=== PATIENT | female | born 1955 | race Caucasian/White ===

== ENCOUNTER 2024-07-20 17:48 | Inpatient (IN) | payer MEDICARE, BC ==
[~2024-07-20] VITALS: Ht 162.6 cm; Wt 116.4 kg
[2024-07-20] MEDS ORDERED: MAALOX PLUS or MAALOX 30 ML PO ONE (18:45)
[2024-07-20] MEDS ORDERED: LIDOCAINE VISCOUS 2% 15ML UD PO ONE (18:45)
--- NOTE | 2024-07-20 19:05 | ED.PDOC ---
History of Present Illness HPI Comments 69 y/o obese F, with a history of DM, HTN, and hysterectomy, presents with c/o epigastric and lower abdominal pain, nausea, poor appetite, and chills for the past few days. Patient is a poor historian. She describes pain as constant and pressure-like in quality. Further endorses on having additional constipation alongside other symptoms during early onset, that has since resolved prior to arrival following laxative Docusate, MiraLax, and magnesium citrate use. Patient also reports on GasX medication use after laxative course to no relief or improvement of current symptoms. She is able to eat small amounts of food still. She denies any recent changes to her diet or current medications regimen alongside any travel, spoiled food intake, or substance use. Patient denies any on having any vomiting, constipation, diarrhea, urinary symptoms, fever, chills, or further associated symptoms or modifiers. Chief Complaint: Abdominal Pain Time Seen by MD: 18:20 Primary Care Provider: MICHELE Reviewed Notes: Nurses Notes, Medications, Allergies Allergies: Coded Allergies: NO KNOWN ALLERGIES (Unverified , 07/20/24) Information Source: Patient Mode of Arrival: Ambulatory Severity: Moderate Timing: Days Duration: Since onset Prehospital treatment: None Review of Systems: REVIEW OF SYSTEMS: No fever; chills HEENT: No neck pain, no blurred vision Cardiac:. No palpitations. Lungs: No shortness of breath, GI: epigastric and lower abdominal pain, nausea, poor appetite no vomiting Musculoskeletal: No joint pain , no back pain Skin: No rash, no wound Neuro: No headache, no dizziness, no syncope Vital Signs Vital Signs Date Time Temp Pulse Resp B/P (MAP) Pulse Ox O2 Delivery O2 Flow Rate FiO2 07/20/24 19:04 94 07/20/24 18:10 97.5 20 132/77 (95) 96 97.5 Physical Exam General: Awake, alert and oriented. No acute distress. Well-appearing, pleasant, smiling during exam. Skin: Skin in warm, dry and intact without rashes or lesions. HEENT: The head is normocephalic and atraumatic. Conjunctivae are clear without exudates or hemorrhage. Sclera is non-icteric. Neck: Normal range of motion. No JVD. Cardiac: Regular rate Respiratory: No signs of respiratory distress. No Stridor. Gastrointestinal: RUQ-epigastric and suprapubic tenderness, normal bowel sounds. No CVA tenderness. Extremities: Upper and lower extremities are atraumatic in appearance without deformity. Neurological: The patient is awake, alert and oriented to person, place, and time with normal speech. Speech is clear. There is no facial asymmetry. Normal gait Psychiatric: Appropriate mood and affect. Good judgement and insight. Past Medical History PAST MEDICAL HISTORY: DM, HTN Surgical History: Hysterectomy Surgical History (Other): Cataract and foot surgery [employer] PA[employer] SUPER[employer]OR History: Denies all [employer]PER[employer]OR Hx Family History Family History: Unknown Social History Smoker: Non-Smoker Alcohol: Denies ETOH Use Drugs: Denies Drug Use Lives In: Home Was a procedure done? Was a procedure done?: No EKG EKG : Pulse Rate (adult): 94 [place]: Normal Cardiac Rhythm: NSR Block: None Hypertrophy: None ST: Normal Comments QTC 4, 63 no STEMI Differential Dx Considerations may include: Differential diagnoses considered include: Abdominal aortic aneurysm, IA, esophageal rupture, intestinal obstruction, mesenteric ischemia, perforated viscus or solid organ rupture, CHF with hepatomegaly, pneumonia, abscess, appendicitis, biliary disease, diverticulitis, gastritis, gastroenteritis, hepatitis, hernia, inflammatory bowel disease, pancreatitis, peptic ulcer disease, urinary tract infection, ureteral colic, constipation, GERD, irritable syndrome, abdominal wall pain, nonspecific abdominal pain, herpes zoster. PID X-Ray, Labs, Meds, VS Vital Signs Date Time Temp Pulse Resp B/P (MAP) Pulse Ox O2 Delivery O2 Flow Rate FiO2 07/20/24 19:04 94 07/20/24 18:26 94 07/20/24 18:10 97.5 109 20 132/77 (95) 96 97.5 Lab Test 07/20/24 18:53 07/20/24 18:20 07/20/24 18:19 Range/Units White Blood Count 18.7 H 4.4-10.8 10^3/uL Red Blood Count 4.95 4.0-5.20 10^6/uL Hemoglobin 14.2 12.2-16.2 g/dL Hematocrit 42.7 36.0-46.0 % Mean Corpuscular Volume 86.3 80.0-100.0 fL Mean Corpuscular Hemoglobin 28.7 28.0-32.0 pg Mean Corpuscular Hemoglobin Concent 33.2 32.0-36.0 g/dL Red Cell Distribution Width 14.0 11.8-14.3 % Platelet Count 370 140-450 10^3/uL Mean Platelet Volume 8.8 6.9-10.8 fL Neutrophils (%) (Auto) 80.4 H 37.0-80.0 % Lymphocytes (%) (Auto) 11.0 10.0-50.0 % Monocytes (%) (Auto) 8.4 0.0-12.0 % Eosinophils (%) (Auto) 0.1 0.0-7.0 % Basophils (%) (Auto) 0.1 0.0-2.0 % Neutrophils # (Auto) 15.1 H 1.6-8.6 10 ^3/uL Lymphocytes # (Auto) 2.1 0.4-5.4 10 ^3/uL Monocytes # (Auto) 1.6 H 0-1.3 10 ^3/uL Eosinophils # (Auto) 0 0-0.8 10 ^3/uL Basophils # (Auto) 0 0-0.2 10 ^3/uL Nucleated Red Blood Cells 0.1 % Sodium Level 133 L 136-145 mmol/L Potassium Level 4.3 3.5-5.1 mmol/L Chloride Level 99 98-107 mmol/L Carbon Dioxide Level 24 20-31 mmol/L Anion Gap 10 5-15 Blood Urea Nitrogen 14 9-23 mg/dL Creatinine 1.22 H 0.550-1.02 mg/dL Glomerular Filtration Rate Calc 48 >90 mL/min BUN/Creatinine Ratio 11.5 10.0-20.0 Serum Glucose 194 H 74-106 mg/dL Calcium Level 9.6 8.7-10.4 mg/dL Total Bilirubin 0.7 0.2-1.0 mg/dL Aspartate Amino Transferase (AST) 11 L 13-40 U/L Alanine Aminotransferase (ALT) 11 7-40 U/L Alkaline Phosphatase 91 46-116 U/L Troponin I High Sensitivity 5 </=34 ng/L Total Protein 8.0 5.7-8.2 g/dL Albumin 4.8 3.2-4.8 g/dL Lipase 39 12-53 U/L POC Glucose 176 H 70-106 mg/dl Urine Color Light-orange Yellow Urine Clarity Ex.turbid Clear Urine pH 5.5 5.0-9.0 Urine Specific [place] 1.025 1.001-1.035 Urine Protein 1+ H Negative Urine Ketones Negative Negative Urine Blood 1+ H Negative /uL Urine Nitrite Negative Negative Urine Bilirubin Negative Negative Urine Urobilinogen Normal Negative mg/dL Urine Leukocyte Esterase 3+ Negative /uL Urine RBC 25 0 - 4 /hpf Urine Microscopic WBC 70 H 0-5 /HPF Urine Squamous Epithelial Cells Many <5 /hpf Urine Bacteria Few H None Seen /hpf Urine Mucus Few None Seen Urine Glucose Trace Normal mg/dL PROCEDURE(s): ABPL - CT AB PEL WO CON-NO ORAL OR IV REASON: generalized abd pain, RUQ tender ORDER NUMBER(s): [id number], ACCESSION NUMBER(s): [id number] Procedure: CT CT AB PEL WO CON-NO ORAL OR IV 07/20/2024 07:06 PM Indication: generalized abd pain, RUQ tender Comparison Study: None Technique: Axial images were obtained and reformatted in coronal and sagittal planes. All CT scans at this medical facility are performed using dose modu lation techniques as appropriate to a performed exam including the following: Automated exposure control was utilized; adjustment of the MA and/or KV according to patient size; and use of iterative reconstruction technique. CT Dose: CTDI volume is 22.88 mGy. Dose-length product is 1224.87 mGy*cm FINDINGS: Lower Chest: Unremarkable. Hepatobiliary: A 5.9 cm stone seen in gallbladder lumen moderate gallbladder wall thickening severe pericholecystic inflammation compatible with acute cholecystitis. No intrahepatic or extrahepatic ductal dilatation.. Spleen: Unremarkable. Pancreas: Unremarkable. Adrenal Glands: Unremarkable. tract: The kidneys are normal in size bilaterally without hydronephrosis or nephrolithiasis. The urinary bladder is unremarkable. GI tract: The stomach is grossly normal in appearance. No evidence of small bowel obstruction. The large bowel is unremarkable. The appendix is normal. Lymphatics: No mesenteric, retroperitoneal or periportal lymphadenopathy. Vasculature: Aorta is normal in caliber. Scattered calcified plaques are noted. Pelvic Organs: The uterus is surgically absent. No adnexal lesion is identified. Bones/soft tissues: Mild degenerative grade 1 anterolisthesis at L4-L5. Multilevel degenerative disc disease and posterior facet arthropathy of the lumbar spine noted. Other: None. IMPRESSION: 1. Cholelithiasis with evidence of acute cholecystitis. A large, 5.9 cm gallstone seen in gallbladder lumen. No intrahepatic or extrahepatic ductal dilatation. ATED BY: INDY GUTIERREZ MD DICTATED DATE/TIME: 07/20/241958 SIGNED BY: INDY GUTIERREZ MD SIGNED DATE/TIME: 07/20/241958 CC: Time of 1ST Reevaluation: 18:50 Reevaluation 1ST: Unchanged Patient Education/Counseling: Need For Follow Up Family Education/Counseling: No Family Present Departure 1 Departure Time of Disposition: 20:34 Impression: Primary Impression: Urinary tract infection Additional Impressions: Cholelithiasis Abdominal pain Disposition: ADMITTED INPATIENT Condition: Stable Comments Antibiotics, IV fluids initiated in the emergency department. Patient admitted to hospitalist service for further treatment, evaluation and monitoring. Extensive evaluation was performed in attempt to identify or rule out: (See differential diagnosis section) The following tests were ordered, and results were reviewed by me and discussed with patient: (See diagnostic results section) The following test were independently interpreted by me: EKG I reviewed and agreed with the following test results read by other providers: N/A I reviewed the following notes from the pt's past medical encounters: N/A Additional information was gathered from interviewing the following independent historians: N/A Discussion of management or test interpretation with external physician/other qualified health tree care foreman: N/A Decision regarding hospitalization or escalation of hospital level of care: Risk and benefits of admission for further treatment of patient's condition was considered. Due to patient's current clinical condition, high risk of decline and poor outcome if discharged and need for further inpatient management and monitoring, patient will be admitted to the hospital. Drug therapy requiring intensive monitoring for toxicity: N/A Parenteral controlled substances: IV morphine Decision regarding elective major surgery with identified patient or procedure risk factors: N/A Decision regarding emergency major surgery: N/A Decision not to resuscitate or to de-escalate care because of poor prognosis: N/A Diagnosis or treatment significantly limited by social determinants of health: N/A Critical Care Note Critical Care Time?: No Stability Stability form required: No Heart Score Heart Score: Heart Score Response (Comments) Value History N/A 0 EKG N/A 0 Age N/A 0 Risk Factors N/A 0 Troponin N/A 0 Total 0 I personally scribed for SAKRIS DÍAZ MD ([email or web address]) on 07/20/24 at 19:04. Electronically submitted by Brown Lacy ([email or web address]). SARKIS DÍAZ MD July 20, 2024 19:04
[2024-07-20 19:38] LABS: Basophils # (auto) 0 10 ^3/uL (0-0.2); Basophils % (auto) 0.1 % (0.0-2.0); Eosinophils # (auto) 0 10 ^3/uL (0-0.8); Eosinophils % (auto) 0.1 % (0.0-7.0); Hematocrit 42.7 % (36.0-46.0); Hemoglobin 14.2 g/dL (12.2-16.2); Lymphocytes # (auto) 2.1 10 ^3/uL (0.4-5.4); Mean Corpuscular Hemoglobin 28.7 pg (28.0-32.0); Mean Corpuscular Hgb Conc. 33.2 g/dL (32.0-36.0); Mean Corpuscular Volume 86.3 fL (80.0-100.0); Monocytes # (auto) 1.6 10 ^3/uL (0-1.3); Monocytes % (auto) 8.4 % (0.0-12.0); Neutrophils # (auto) 15.1 10 ^3/uL (1.6-8.6); Neutrophils % (auto) 80.4 % (37.0-80.0); Nucleated Red Blood Cells % 0.1 %; Platelet Count (auto) 370 10^3/uL (140-450); Red Blood Cells 4.95 10^6/uL (4.0-5.20); White Blood Cell 18.7 10^3/uL (4.4-10.8)
[2024-07-20 19:54] LABS: Alanine Aminotransferase 11 U/L (7-40); Alkaline Phosphatase 91 U/L (46-116); Anion Gap 10 (5-15); BUN/Creatinine Ratio 11.5 (10.0-20.0); Blood Urea Nitrogen 14 mg/dL (9-23); Calcium 9.6 mg/dL (8.7-10.4); Carbon Dioxide 24 mmol/L (20-31); Chloride 99 mmol/L (98-107); Lipase 39 U/L (12-53); Potassium 4.3 mmol/L (3.5-5.1)
[2024-07-20 19:55] LABS: Bilirubin, Total 0.7 mg/dL (0.2-1.0)
[2024-07-20 19:57] LABS: Albumin 4.8 g/dL (3.2-4.8); Aspartate Aminotransferase 11 U/L (13-40); Glucose 194 mg/dL (74-106); Sodium 133 mmol/L (136-145)
[2024-07-20 20:00] LABS: Urine Bacteria FEW /hpf (None Seen); Urine Blood 1+ /uL (Negative); Urine Clarity Ex.Turbid (Clear); Urine Color Light-Orange (Yellow); Urine Mucus FEW (None Seen); Urine Protein, UAD 1+ (Negative); Urine Specific Gravity 1.025 (1.001-1.035); Urine Squamous Epithelial Cell MANY /hpf (<5); Urine Urobilinogen Normal (Negative); Urine WBC 70 /HPF (0-5); Urine pH 5.5 (5.0-9.0)
--- NOTE | 2024-07-20 20:01 | DVH ---
Procedure: CT CT AB PEL WO CON-NO ORAL OR IV 07/20/2024 07:06 PM Indication: generalized abd pain, RUQ tender Comparison Study: None Technique: Axial images were obtained and reformatted in coronal and sagittal planes. All CT scans at this medical facility are performed using dose modulation techniques as appropriate to a performed e xam including the following: Automated exposure control was utilized; adjustment of the MA and/or KV according to patient size; and use of iterative reconstruction technique. CT Dose: CTDI volume is 22. 88 mGy. Dose-length product is 1224.87 mGy*cm FINDINGS: Lower Chest: Unremarkable. Hepatobiliary: A 5.9 cm stone seen in gallbladder lumen moderate gallbladder wall thickening severe p ericholecystic inflammation compatible with acute cholecystitis. No intrahepatic or extrahepatic duct al dilatation.. Spleen: Unremarkable. Pancreas: Unremarkable. Adrenal Glands: Unremarkable. tract: The kidneys are normal in size bilaterally without hydronephrosis or nephrolithiasis. The u rinary bladder is unremarkable. GI tract: The stomach is grossly normal in appearance. No evidence of small bowel obstruction. The la rge bowel is unremarkable. The appendix is normal. Lymphatics: No mesenteric, retroperitoneal or periportal lymphadenopathy. Vasculature: Aorta is normal in caliber. Scattered calcified plaques are noted. Pelvic Organs: The uterus is surgically absent. No adnexal lesion is identified. Bones/soft tissues: Mild degenerative grade 1 anterolisthesis at L4-L5. Multilevel degenerative disc disease and posterior facet arthropathy of the lumbar spine noted. Other: None. IMPRESSION: 1. Cholelithiasis with evidence of acute cholecystitis. A large, 5.9 cm gallstone seen in gallbladde r lumen. No intrahepatic or extrahepatic ductal dilatation.
[2024-07-20] MEDS ORDERED: SODIUM CHLORIDE 0.9% 1,000 ML IV ONE (20:45)
[2024-07-20] MEDS: MORPHINE SULFATE INJ 2 MG/ml SYRG IV ONE (20:45)
[2024-07-20] MEDS ORDERED: ONDANSETRON HCL 4 MG/2 ML VIAL IV PRN (22:30)
--- NOTE | 2024-07-20 22:32 | DVHHP2 ---
History of Present Illness Reason for Visit: Abdominal pain History of Present Illness 69-year-old female presents for evaluation of abdominal pain. Patient reports a four day history of epigastric/lower abdominal sharp pain that is intermittent in nature. Reports episodes of nausea especially after eating. States having chills as well. No other acute complaints reported. Past Medical History Hypertension diabetes mellitus Past Surgical History Foot surgery Family History Noncontributory Smoke: No ALCOHOL: none Drugs: None Lives: with Family Review of Systems Review of Systems Review of systems are currently negative otherwise addressed in HPI. Allergies: Coded Allergies: NO KNOWN ALLERGIES (Unverified , 07/20/24) Medications Current Medications Medications Dose Ordered Sig/[place] Route Start Time Stop Time Status Last Admin Dose Admin Ceftriaxone Sodium 50 ml @ 100 mls/hr DAILY@09 IV 07/21/24 09:00 UNV Metronidazole 100 ml @ 100 mls/hr Q8HR IV 07/21/24 06:00 UNV Sodium Chloride 1,000 ml @ 100 mls/hr Q10H IV 07/20/24 22:30 UNV Ondansetron HCl 4 mg Q4HP PRN IV 07/20/24 22:30 UNV Morphine Sulfate 2 mg Q4HPRN PRN IV 07/20/24 22:30 UNV Exam Vital Signs Vital Signs Date Time Temp Pulse Resp B/P (MAP) Pulse Ox O2 Delivery O2 Flow Rate FiO2 07/20/24 19:04 94 07/20/24 18:10 97.5 20 132/77 (95) 96 97.5 Exam Gen: 69-year-old female in mild distress Skin: Warm, dry, normal color and texture, no rash. HEENT: Normocephalic atraumatic, mucous membranes moist and pink. Neck: Cervical and supraclavicular nodes normal without enlargement, trachea is midline, thyroid gland is normal without masses. Pulmonary: Clear to auscultation and percussion bilaterally. Cardiac: Regular rate and rhythm. No murmur Abdomen: Soft, epigastric tenderness, nondistended, bowel sounds present all 4 quadrants, no guarding, no rigidity, no organomegaly. Extremities: No cyanosis, clubbing, no edema Neuro: Cranial nerves II through XII grossly intact, normal affect and speech, no focal motor deficits. Labs/Xrays ORDERING PHYSICIAN: SARKIS DÍAZ MD PROCEDURE(s): ABPL - CT AB PEL WO CON-NO ORAL OR IV REASON: generalized abd pain, RUQ tender ORDER NUMBER(s): [id number], ACCESSION NUMBER(s): [id number] Procedure: CT CT AB PEL WO CON-NO ORAL OR IV 07/20/2024 07:06 PM Indication: generalized abd pain, RUQ tender Comparison Study: None Technique: Axial images were obtained and reformatted in coronal and sagittal planes. All CT scans at this medical facility are performed using dose modulation techniques as appropriate to a performed exam including the following: Automated exposure control was utilized; adjustment of the MA and/or KV according to patient size; and use of iterative reconstruction technique. CT Dose: CTDI volume is 22.88 mGy. Dose-length product is 1224.87 mGy*cm FINDINGS: Lower Chest: Unremarkable. Hepatobiliary: A 5.9 cm stone seen in gallbladder lumen moderate gallbladder wall thickening severe pericholecystic inflammation compatible with acute cholecystitis. No intrahepatic or extrahepatic ductal dilatation.. Spleen: Unremarkable. Pancreas: Unremarkable. Adrenal Glands: Unremarkable. tract: The kidneys are normal in size bilaterally without hydronephrosis or nephrolithiasis. The urinary bladder is unremarkable. GI tract: The stomach is grossly normal in appearance. No evidence of small bowel obstruction. The large bowel is unremarkable. The appendix is normal. Lymphatics: No mesenteric, retroperitoneal or periportal lymphadenopathy. Vasculature: Aorta is normal in caliber. Scattered calcified plaques are noted. Pelvic Organs: The uterus is surgically absent. No adnexal lesion is identified. Bones/soft tissues: Mild degenerative grade 1 anterolisthesis at L4-L5. Multilevel degenerative disc disease and posterior facet arthropathy of the lumbar spine noted. Other: None. IMPRESSION: 1. Cholelithiasis with evidence of acute cholecystitis. A large, 5.9 cm gallstone seen in gallbladder lumen. No intrahepatic or extrahepatic ductal dilatation. ATED BY: INDY GUTIERREZ MD Labs Test 07/20/24 18:53 07/20/24 18:20 07/20/24 18:19 Range/Units White Blood Count 18.7 H 4.4-10.8 10^3/uL Red Blood Count 4.95 4.0-5.20 10^6/uL Hemoglobin 14.2 12.2-16.2 g/dL Hematocrit 42.7 36.0-46.0 % Mean Corpuscular Volume 86.3 80.0-100.0 fL Mean Corpuscular Hemoglobin 28.7 28.0-32.0 pg Mean Corpuscular Hemoglobin Concent 33.2 32.0-36.0 g/dL Red Cell Distribution Width 14.0 11.8-14.3 % Platelet Count 370 140-450 10^3/uL Mean Platelet Volume 8.8 6.9-10.8 fL Neutrophils (%) (Auto) 80.4 H 37.0-80.0 % Lymphocytes (%) (Auto) 11.0 10.0-50.0 % Monocytes (%) (Auto) 8.4 0.0-12.0 % Eosinophils (%) (Auto) 0.1 0.0-7.0 % Basophils (%) (Auto) 0.1 0.0-2.0 % Neutrophils # (Auto) 15.1 H 1.6-8.6 10 ^3/uL Lymphocytes # (Auto) 2.1 0.4-5.4 10 ^3/uL Monocytes # (Auto) 1.6 H 0-1.3 10 ^3/uL Eosinophils # (Auto) 0 0-0.8 10 ^3/uL Basophils # (Auto) 0 0-0.2 10 ^3/uL Nucleated Red Blood Cells 0.1 % Sodium Level 133 L 136-145 mmol/L Potassium Level 4.3 3.5-5.1 mmol/L Chloride Level 99 98-107 mmol/L Carbon Dioxide Level 24 20-31 mmol/L Anion Gap 10 5-15 Blood Urea Nitrogen 14 9-23 mg/dL Creatinine 1.22 H 0.550-1.02 mg/dL Glomerular Filtration Rate Calc 48 >90 mL/min BUN/Creatinine Ratio 11.5 10.0-20.0 Serum Glucose 194 H 74-106 mg/dL Calcium Level 9.6 8.7-10.4 mg/dL Total Bilirubin 0.7 0.2-1.0 mg/dL Aspartate Amino Transferase (AST) 11 L 13-40 U/L Alanine Aminotransferase (ALT) 11 7-40 U/L Alkaline Phosphatase 91 46-116 U/L Troponin I High Sensitivity 5 </=34 ng/L Total Protein 8.0 5.7-8.2 g/dL Albumin 4.8 3.2-4.8 g/dL Lipase 39 12-53 U/L POC Glucose 176 H 70-106 mg/dl Urine Color Light-orange Yellow Urine Clarity Ex.turbid Clear Urine pH 5.5 5.0-9.0 Urine Specific [place] 1.025 1.001-1.035 Urine Protein 1+ H Negative Urine Ketones Negative Negative Urine Blood 1+ H Negative /uL Urine Nitrite Negative Negative Urine Bilirubin Negative Negative Urine Urobilinogen Normal Negative mg/dL Urine Leukocyte Esterase 3+ Negative /uL Urine RBC 25 0 - 4 /hpf Urine Microscopic WBC 70 H 0-5 /HPF Urine Squamous Epithelial Cells Many <5 /hpf Urine Bacteria Few H None Seen /hpf Urine Mucus Few None Seen Urine Glucose Trace Normal mg/dL Assessment/Plan Assessment/Plan Assessment Acute cholecystitis Acute abdominal pain Leukocytosis UTI Plan Admit the patient to [facility] to the hospitalist NPO Surgical consult Maintenance IV fluids Rocephin/Flagyl Pain management Continue treatment per orders Plan discussed with: Patient My Orders Orders - MEENA WILLOUGHBY Procedure Category Date Status Time Ceftriaxone 1gm/50ml PHA 07/21/24 Logged D5w (Rocephin) 09:00 Metronidazole PHA 07/21/24 Logged 500mg/100ml (Flagyl 06:00 Sodium Chloride 0.9% PHA 07/20/24 Logged 22:30 PTPTT LAB 07/20/24 Logged 22:18 Type And Screen BBK 07/20/24 Logged 22:18 * Surgical Consult CONS 07/20/24 Transmitted Basic Metabolic Panel LAB 07/21/24 Verified 04:00 Admit ADMIT 07/20/24 Transmitted 22:18 Ondansetron Hcl PHA 07/20/24 Logged (Zofran) 22:30 Complete Blood Count LAB 07/21/24 Verified 04:00 Npo (Nothing By DIET 07/21/24 Transmitted Mouth) Diet Breakfast Condition: Stable NADIA 07/20/24 In Process 22:18 Bedrest With Bathroom NADIA 07/20/24 In Process Privileg 22:18 Morphine Sulfate PHA 07/20/24 Logged Injection 22:30 Date of Service: July 20, 2024 Billing Provider: MEENA WILLOUGHBY Common Visit Codes: [id number] INP/OBS CARE (HIGH) MEENA WILLOUGHBY July 20, 2024 22:32
[2024-07-20 23:24] LABS: INR 1.05 (0.9-1.15); Partial Thromboplastin Time 33.5 SEC (24.5-34.5); Prothrombin Time 11.1 sec (9.3-11.8)
[2024-07-21] VITALS (9 sets, daily range): BP systolic 131–153; BP diastolic 56–68; PULSE 73–116; RESP 18–22; TEMP 96.8–98.2; O2SAT 95–98
[2024-07-21] MEDS: ACETAMINOPHEN 500 MG TAB or CAP PO ONE (02:48)
[2024-07-21] MEDS: ONDANSETRON HCL 4 MG/2 ML VIAL IV ONE (02:49)
[2024-07-21] MEDS: cefTRIAXone 1GM/50ML D5W 50 ML IV ONE (02:49)
[2024-07-21] MEDS: SODIUM CHLORIDE 0.9% 500 ML IV ONE (02:50)
--- NOTE | 2024-07-21 02:59 | ECG ---
[facility] Test Date: 2024-07-20 Test Time: 18:26:17 Pat Name: QUEENIE ORNELAS Department: ER Room: 0294 Gender: F Emt: RANDY : 1955 Requested By: SARKIS DÍAZ Order Number: [id number] Reading MD: Liu Isabel Measurements Intervals [place] Rate: 94 P: 54 SD: 131 QRS: 187 QRSD: 104 T: 59 QT: 370 QTc: 463 Interpretive Statements Sinus rhythm Probable left atrial enlargement Anteroseptal infarct, age indeterminate Electronically Signed On 07-22-2024 12:47:03 PDT by Liu Isabel Please click the below link to view image of tracing.
[2024-07-21] MEDS: metroNIDAZOLE 500MG/100ML 100 ML IV ONE (03:32)
[2024-07-21] MEDS: SODIUM CHLORIDE 0.9% 1,000 ML IV SCH ×2 (03:34→13:54)
[2024-07-21 04:58] LABS: Basophils # (auto) 0 10 ^3/uL (0-0.2); Basophils % (auto) 0.1 % (0.0-2.0); Eosinophils # (auto) 0 10 ^3/uL (0-0.8); Eosinophils % (auto) 0.1 % (0.0-7.0); Hematocrit 40.2 % (36.0-46.0); Hemoglobin 13.5 g/dL (12.2-16.2); Lymphocytes # (auto) 1.4 10 ^3/uL (0.4-5.4); Lymphocytes % (auto) 7.6 % (10.0-50.0); Mean Corpuscular Hemoglobin 28.8 pg (28.0-32.0); Mean Corpuscular Hgb Conc. 33.6 g/dL (32.0-36.0); Mean Corpuscular Volume 85.7 fL (80.0-100.0); Monocytes # (auto) 1.6 10 ^3/uL (0-1.3); Monocytes % (auto) 8.4 % (0.0-12.0); Neutrophils # (auto) 15.9 10 ^3/uL (1.6-8.6); Neutrophils % (auto) 83.8 % (37.0-80.0); Platelet Count (auto) 314 10^3/uL (140-450); Red Blood Cells 4.69 10^6/uL (4.0-5.20); Red Cell Distribution Width 13.9 % (11.8-14.3); White Blood Cell 18.9 10^3/uL (4.4-10.8)
[2024-07-21] MEDS: metroNIDAZOLE 500MG/100ML 100 ML IV SCH (05:03)
[2024-07-21 06:02] LABS: Chloride 100 mmol/L (98-107); Potassium 4.5 mmol/L (3.5-5.1)
[2024-07-21 06:03] LABS: Anion Gap 10 (5-15); Carbon Dioxide 24 mmol/L (20-31)
[2024-07-21 06:08] LABS: BUN/Creatinine Ratio 15.9 (10.0-20.0); Blood Urea Nitrogen 20 mg/dL (9-23); Glucose 204 mg/dL (74-106); Sodium 134 mmol/L (136-145)
[2024-07-21] MEDS ORDERED: OMEG-20 PO (06:18)
[2024-07-21] MEDS ORDERED: METF-372 PO (06:18)
[2024-07-21] MEDS ORDERED: ROSU5TAB5 PO (06:18)
[2024-07-21] MEDS ORDERED: CHOL20007 PO (06:18)
[2024-07-21] MEDS ORDERED: LISI20TA56 PO (06:18)
--- NOTE | 2024-07-21 09:25 | DVHPNRES ---
Progress Note Date Seen: July 21, 2024 Resident Creating Document: FELIPE HARP RESIDENT Medical Necessity Reason Pt with a Central, PICC or Fol: No Subjective Review of Systems 69-year-old female with PMH of DM amd HTN presents to the hospital with abdominal and chest pain. The patient reports experiencing abdominal pain that extended to the middle of the chest and stomach. Initially, the patient thought it was related to constipation and attempted to address it with [id number] remedies. However, the pain persisted and intensified. The onset of symptoms began approximately one week ago, with the patient first noticing constipation. By , the pain had significantly increased. The patient describes the pain as causing "a lot of discomfort." Associated symptoms include intermittent chills, but no fever or vomiting was reported. ROS Constitutional: Denies weight loss, fever and chills. HEENT: Denies changes in vision and hearing. Respiratory: Denies shortness of breath and cough Cardiovascular: Denies chest discomfort or palpitations GI: Denies abdominal pain, nausea, vomiting and diarrhea. : Denies dysuria and urinary frequency. Musculoskeletal: Denies myalgias and joint pain Skin: Denies rash and pruritus. Neurological: Denies dizziness, headache, vision or hearing problems Objective vital signs Vital Sign Date Time Temp Pulse Resp B/P (MAP) Pulse Ox O2 Delivery O2 Flow Rate FiO2 07/21/24 08:41 96.8 75 22 131/56 (81) 95 96.8 07/21/24 02:50 Room Air* 0 21 medications Current Medications Medications Dose Ordered Sig/Aguila Route Start Time Stop Time Status Last Admin Dose Admin Ceftriaxone Sodium 50 ml @ 100 mls/hr DAILY@2100 IV 07/21/24 21:00 Metronidazole 100 ml @ 100 mls/hr Q8HR IV 07/21/24 06:00 Sodium Chloride 1,000 ml @ 100 mls/hr Q10H IV 07/20/24 22:30 07/21/24 03:34 100 MLS/HR Ondansetron HCl 4 mg Q4HP PRN IV 07/20/24 22:30 Morphine Sulfate 2 mg Q4HPRN PRN IV 07/20/24 22:30 Examination GENERAL: Not in acute distress. HEENT: EOMI, Moist mucous membranes. No scleral icterus. No cervical lymphadenopathy. LUNGS: Clear to auscultation bilaterally. No accessory muscle use. CARDIOVASCULAR: Regular rate and rhythm. No murmur. No JVD. ABDOMEN: Soft, epigastric tenderness, nondistended, bowel sounds present all 4 quadrants, no guarding, no rigidity, no organomegaly. Lira's Sign (+). EXTREMITIES: Trace edema. Nontender. SKIN: No rashes or lesions. Warm. NEUROLOGIC: Alert and oriented X3 laboratory and microbiology Laboratory Tests 07/21/24 04:40 Test 07/21/24 04:40 Range/Units Serum Glucose 204 H 74-106 mg/dL Problem List/Assessment/Plan Problem List/Assessment/Plan # Acute cholecystitis with cholelithiasis # Acute abdominal pain # Leukocytosis - Surgical consultation - Ordered HIDA scan - Informed patient about the need for gallbladder removal surgery - continue empiric antibiotics # Symptomatic UTI - shows leukocyte esterase 3+, urine WBC 70, bacteria few - patient has complaint of dysuria - continue Rocephin # Hypertension - Monitor blood pressure closely - Continue current antihypertensive medication (lisinopril) # Type 2 Diabetes Mellitus - HbA1C :7.0 - monitor blood glucose level -continue sliding scale insulin # Hyperlipidemia - Continue current cholesterol medication ( Rosuvastatin 5 mg daily ) Goal of care discussed patient for 32 minutes: Full code Case discussed with Dr. Ortiz Plan discussed with: Patient Date of Service: July 21, 2024 Billing Provider: CASANDRA ORTIZ MD Common Visit Codes: [id number] INP/OBS CARE(HIGH) FELIPE HARP RESIDENT July 21, 2024 09:25 CASANDRA ORTIZ MD July 27, 2024 22:46
[2024-07-21] MEDS ORDERED: DEXTROSE (50%) 50ML SYRG IV PRN (09:30)
[2024-07-21] MEDS: MORPHINE SULFATE INJ 2 MG/ml SYRG IV PRN (09:51)
[2024-07-21] MEDS: InsuLIN REG 1unit/0.01ml Soln (100units/ml) SC SCH (11:30)
[2024-07-21] MEDS: ACCU-CHEK COMFORT CURVE STRIP VI SCH (11:30)
--- NOTE | 2024-07-21 16:43 | DVHINCON2 ---
Consultation - Surgical Date Seen: July 21, 2024 Referring Physician Referring Physician ER Reason for Consultation Abdominal pain gallstones possible cholecystitis History of Present Illness History of Present Illness 69 y/o obese F, with a history of DM, HTN, and hysterectomy, presents with c/o epigastric and lower abdominal pain, nausea, poor appetite, and chills for the past few days. Patient is a poor historian. She describes pain as constant and pressure-like in quality. Further endorses on having additional constipation alongside other symptoms during early onset, that has since resolved prior to arrival following laxative Docusate, MiraLax, and magnesium citrate use. Patient also reports on GasX medication use after laxative course to no relief or improvement of current symptoms. She is able to eat small amounts of food still. She denies any recent changes to her diet or current medications regimen alongside any travel, spoiled food intake, or substance use. Patient denies any on having any vomiting, constipation, diarrhea, urinary symptoms, fever, chills, Allergies and medications Allergies: Coded Allergies: NO KNOWN ALLERGIES (Unverified , 07/20/24) Home Meds Reported Medications Rosuvastatin Calcium (Crestor) 5 Mg Tab, 1 TAB PO DAILY, #30 TAB 5 Refills 07/21/24 Lisinopril (Lisinopril) 20 Mg Tab, 1 TAB PO DAILY, #30 TAB 5 Refills 07/21/24 Metformin Hydrochloride (Metformin Hcl) 1,000 Mg Tab, 1 TAB PO BID, #60 TAB 5 Refills 07/21/24 Cholecalciferol (VITAMIN D3) 2,000 Unit Tab, 1 TAB PO DAILY@BREAKFAST, #30 TAB 5 Refills 07/21/24 [place]-3 Fatty Acids (FISH OIL) 1,000 Mg Cap, 1000 MG PO, CAP 07/21/24 Review of systems Review of Systems: HEENT:Normal, CVS:Normal, RESPIRATORY:Normal, GI:Abnormal, :Normal, MSK:Normal, NEURO:Normal Examination Vital signs Vital Signs Date Time Temp Pulse Resp B/P (MAP) Pulse Ox O2 Delivery O2 Flow Rate FiO2 07/21/24 13:00 97.5 83 20 152/62 (92) 97.5 07/21/24 08:41 95 07/21/24 02:50 Room Air* 0 21 Medications Current Medications Medications (Trade) Dose Ordered Sig/Aguila Route PRN Reason Start Time Stop Time Status Last Admin Ceftriaxone Sodium 50 ml @ 100 mls/hr DAILY@2100 IV 07/21/24 21:00 Metronidazole 100 ml @ 100 mls/hr Q8HR IV 07/21/24 06:00 07/21/24 16:21 Sodium Chloride 1,000 ml @ 100 mls/hr Q10H IV 07/20/24 22:30 07/21/24 11:44 DC 07/21/24 09:48 Ondansetron HCl (Zofran) 4 mg Q4HP PRN IV NAUSEA / VOMITING 07/20/24 22:30 Morphine Sulfate 2 mg Q4HPRN PRN IV SEVERE PAIN (7-10 PAIN SCALE) 07/20/24 22:30 07/21/24 09:51 Diagnostic Test (Pha) (Accu-Chek Comfort Curve T) 1 strip ACHS 07/21/24 11:30 07/21/24 11:30 Insulin Human Regular (InsuLIN R) ACHS SC 07/21/24 11:30 Dextrose 50 ml UD PRN IV Blood Sugar LESS THAN 60 07/21/24 09:30 Sodium Chloride 1,000 ml @ 75 mls/hr [id number] IV 07/21/24 11:45 07/21/24 13:54 Lisinopril (Zestril Tablet) 20 mg DAILY PO 07/22/24 10:00 Laboratory Labs Test 07/21/24 11:32 07/21/24 04:40 07/20/24 22:53 07/20/24 18:53 Range/Units POC Glucose 159 H 70-106 mg/dl White Blood Count 18.9 H 4.4-10.8 10^3/uL Red Blood Count 4.69 4.0-5.20 10^6/uL Hemoglobin 13.5 12.2-16.2 g/dL Hematocrit 40.2 36.0-46.0 % Mean Corpuscular Volume 85.7 80.0-100.0 fL Mean Corpuscular Hemoglobin 28.8 28.0-32.0 pg Mean Corpuscular Hemoglobin Concent 33.6 32.0-36.0 g/dL Red Cell Distribution Width 13.9 11.8-14.3 % Platelet Count 314 140-450 10^3/uL Mean Platelet Volume 8.4 6.9-10.8 fL Neutrophils (%) (Auto) 83.8 H 37.0-80.0 % Lymphocytes (%) (Auto) 7.6 L 10.0-50.0 % Monocytes (%) (Auto) 8.4 0.0-12.0 % Eosinophils (%) (Auto) 0.1 0.0-7.0 % Basophils (%) (Auto) 0.1 0.0-2.0 % Neutrophils # (Auto) 15.9 H 1.6-8.6 10 ^3/uL Lymphocytes # (Auto) 1.4 0.4-5.4 10 ^3/uL Monocytes # (Auto) 1.6 H 0-1.3 10 ^3/uL Eosinophils # (Auto) 0 0-0.8 10 ^3/uL Basophils # (Auto) 0 0-0.2 10 ^3/uL Nucleated Red Blood Cells 0.0 % Sodium Level 134 L 136-145 mmol/L Potassium Level 4.5 3.5-5.1 mmol/L Chloride Level 100 98-107 mmol/L Carbon Dioxide Level 24 20-31 mmol/L Anion Gap 10 5-15 Blood Urea Nitrogen 20 9-23 mg/dL Creatinine 1.26 H 0.550-1.02 mg/dL Glomerular Filtration Rate Calc 47 >90 mL/min BUN/Creatinine Ratio 15.9 10.0-20.0 Serum Glucose 204 H 74-106 mg/dL Hemoglobin A1c 7.0 H <5.7 % A1C Calcium Level 9.0 8.7-10.4 mg/dL Prothrombin Time 11.1 9.3-11.8 sec Prothrombin Time INR 1.05 0.9-1.15 Activated Partial Thromboplast Time 33.5 24.5-34.5 SEC Total Bilirubin 0.7 0.2-1.0 mg/dL Aspartate Amino Transferase (AST) 11 L 13-40 U/L Alanine Aminotransferase (ALT) 11 7-40 U/L Alkaline Phosphatase 91 46-116 U/L Troponin I High Sensitivity 5 </=34 ng/L Total Protein 8.0 5.7-8.2 g/dL Albumin 4.8 3.2-4.8 g/dL Lipase 39 12-53 U/L Test 07/20/24 18:19 Range/Units Urine Color Light-orange Yellow Urine Clarity Ex.turbid Clear Urine pH 5.5 5.0-9.0 Urine Specific [place] 1.025 1.001-1.035 Urine Protein 1+ H Negative Urine Ketones Negative Negative Urine Blood 1+ H Negative /uL Urine Nitrite Negative Negative Urine Bilirubin Negative Negative Urine Urobilinogen Normal Negative mg/dL Urine Leukocyte Esterase 3+ Negative /uL Urine RBC 25 0 - 4 /hpf Urine Microscopic WBC 70 H 0-5 /HPF Urine Squamous Epithelial Cells Many <5 /hpf Urine Bacteria Few H None Seen /hpf Urine Mucus Few None Seen Urine Glucose Trace Normal mg/dL Procedure: CT CT AB PEL WO CON-NO ORAL OR IV 07/20/2024 07:06 PM Indication: generalized abd pain, RUQ tender Comparison Study: None Technique: Axial images were obtained and reformatted in coronal and sagittal planes. All CT scans at this medical facility are performed using dose modul ation techniques as appropriate to a performed exam including the following: Automated exposure control was utilized; adjustment of the MA and/or KV according to patient size; and use of iterative reconstruction technique. CT Dose: CTDI volume is 22.88 mGy. Dose-length product is 1224.87 mGy*cm FINDINGS: Lower Chest: Unremarkable. Hepatobiliary: A 5.9 cm stone seen in gallbladder lumen moderate gallbladder wall thickening severe pericholecystic inflammation compatible with acute cholecystitis. No intrahepatic or extrahepatic ductal dilatation.. Spleen: Unremarkable. Pancreas: Unremarkable. Adrenal Glands: Unremarkable. tract: The kidneys are normal in size bilaterally without hydronephrosis or nephrolithiasis. The urinary bladder is unremarkable. GI tract: The stomach is grossly normal in appearance. No evidence of small bowel obstruction. The large bowel is unremarkable. The appendix is normal. Lymphatics: No mesenteric, retroperitoneal or periportal lymphadenopathy. Vasculature: Aorta is normal in caliber. Scattered calcified plaques are noted. Pelvic Organs: The uterus is surgically absent. No adnexal lesion is identified. Bones/soft tissues: Mild degenerative grade 1 anterolisthesis at L4-L5. Multilevel degenerative disc disease and posterior facet arthropathy of the lumbar spine noted. Other: None. IMPRESSION: 1. Cholelithiasis with evidence of acute cholecystitis. A large, 5.9 cm gallstone seen in gallbladder lumen. No intrahepatic or extrahepatic ductal dilatation. Examination: GENERAL:Normal, HEENT:Normal, NECK:Normal, LUNGS:Normal, CVS:Normal, ABDOMEN:Abnormal (Minimal epigastric discomfort and tenderness no rebound no guarding), MSK:Normal, SKIN:Normal, NEURO:Normal, :Normal Problem List/Assessment/Plan Problems: (1) Cholelithiasis (2) Urinary tract infection (3) Abdominal pain Assessment and Plan Cholelithiasis with possible cholecystitis and a UTI. IV fluids IV antibiotics awaiting HIDA scan Recommend cardiac clearance for possible surgical intervention in the next 24 hours Plan discussed with Plan discussed with: Patient Visit Coding Surgery Date of Service if different f: July 21, 2024 Billing Provider: ROLAN MYERS Jr., MD Surgery Visit Codes: [id number] - INP CONSULT <80 MIN ROLAN MYERS Jr., MD July 21, 2024 16:43
--- NOTE | 2024-07-21 17:05 | DVH ---
Procedure: NM NM HIDA SCAN Exam Date: 07/21/2024 12:37 PM Clinical History: Cholecystitis, Cholelithiasis Comparison Study: 07/20/2024 Nuclear Medicine Hepatobiliary Scan. Technique: Following the intravenous administration of 4 mCi of technetium 99m labeled Choletec multiple planar abdominal planar images were obtained in anterior projection in 2 minute intervals for 60 minutes . D elayed images obtained at 4 hours. Findings: The liver appears grossly normal in size. There is no abnormal persistence of the cardiac or blood po ol activity. The gallbladder is not visualized at 1:00 a.m. or 4 hours. Impression: 1. .Findings consistent with cystic duct obstruction.
[2024-07-21] MEDS: cefTRIAXone 1GM/50ML D5W 50 ML IV SCH (20:20)
[2024-07-22 01:00] VITALS: BP 119/53; PULSE 93; RESP 17; O2SAT 96
[2024-07-22 05:00] VITALS: BP 124/67; PULSE 89; RESP 18; TEMP 98.4; O2SAT 96
[2024-07-22 07:31] LABS: Basophils # (auto) 0 10 ^3/uL (0-0.2); Basophils % (auto) 0.3 % (0.0-2.0); Eosinophils # (auto) 0.1 10 ^3/uL (0-0.8); Eosinophils % (auto) 0.4 % (0.0-7.0); Hematocrit 36.8 % (36.0-46.0); Hemoglobin 12.3 g/dL (12.2-16.2); Lymphocytes # (auto) 2.1 10 ^3/uL (0.4-5.4); Lymphocytes % (auto) 12.8 % (10.0-50.0); Mean Corpuscular Hemoglobin 28.7 pg (28.0-32.0); Mean Corpuscular Hgb Conc. 33.3 g/dL (32.0-36.0); Mean Corpuscular Volume 86.1 fL (80.0-100.0); Monocytes # (auto) 1.3 10 ^3/uL (0-1.3); Neutrophils # (auto) 12.8 10 ^3/uL (1.6-8.6); Neutrophils % (auto) 78.5 % (37.0-80.0); Platelet Count (auto) 329 10^3/uL (140-450); Red Blood Cells 4.28 10^6/uL (4.0-5.20); Red Cell Distribution Width 13.8 % (11.8-14.3); White Blood Cell 16.3 10^3/uL (4.4-10.8)
[2024-07-22 07:51] LABS: Alanine Aminotransferase 20 U/L (7-40); Alkaline Phosphatase 108 U/L (46-116); Anion Gap 9 (5-15); Aspartate Aminotransferase 17 U/L (13-40); BUN/Creatinine Ratio 15.8 (10.0-20.0); Bilirubin, Total 0.4 mg/dL (0.2-1.0); Blood Urea Nitrogen 19 mg/dL (9-23); Calcium 9.3 mg/dL (8.7-10.4); Carbon Dioxide 23 mmol/L (20-31); Chloride 106 mmol/L (98-107); Potassium 4.4 mmol/L (3.5-5.1); Sodium 138 mmol/L (136-145); Total Protein 6.8 g/dL (5.7-8.2)
[2024-07-22 07:56] LABS: Glucose 118 mg/dL (74-106)
[2024-07-22 09:00] VITALS: BP 114/58; PULSE 86; RESP 18; TEMP 98.1; O2SAT 93
[2024-07-22] MEDS: LISINOPRIL 20 MG TAB PO SCH (09:33)
--- NOTE | 2024-07-22 11:31 | DVHCONRES ---
Date Seen: July 22, 2024 Resident Creating Document: NENA BARRON RESIDENT Referring Physician Dr Galeana History of Present Illness 69-year-old female with past medical history of diabetes mellitus, hypertension and hyperlipidemia presented with complaints of epigastric pain and right hypochondriac, chest pain which she reported to be sharp, not related to activity and posture. Patient was diagnosed with acute cholecystitis and is planned to have surgery tomorrow morning. Cardiology was consulted for cardiac clearance for the surgery. Patient seen and examined at bedside, was denying any active chest pain, shortness of breath, cough, palpitations. Denied any history of smoking, alcohol, marijuana or any other drug intake . Family history positive for cardiac morbidities in mother(afib 50s), sister(CABG 50s, brother (50s) Family History: Diabetes mellitus G8 FATHER Heart murmur G8 MOTHER Hypertension G8 MOTHER G8 FATHER Allergies: Coded Allergies: NO KNOWN ALLERGIES (Unverified , 07/20/24) Home Meds Reported Medications Rosuvastatin Calcium (Crestor) 5 Mg Tab, 1 TAB PO DAILY, #30 TAB 5 Refills 07/21/24 Lisinopril (Lisinopril) 20 Mg Tab, 1 TAB PO DAILY, #30 TAB 5 Refills 07/21/24 Metformin Hydrochloride (Metformin Hcl) 1,000 Mg Tab, 1 TAB PO BID, #60 TAB 5 Re fills 07/21/24 Cholecalciferol (VITAMIN D3) 2,000 Unit Tab, 1 TAB PO DAILY@BREAKFAST, #30 TAB 5 Refills 07/21/24 [place]-3 Fatty Acids (FISH OIL) 1,000 Mg Cap, 1000 MG PO, CAP 07/21/24 Current Medications Current Medications Medications (Trade) Dose Ordered Sig/Aguila Route PRN Reason Start Time Stop Time Status Last Admin Ceftriaxone Sodium 50 ml @ 100 mls/hr DAILY@2100 IV 07/21/24 21:00 07/21/24 20:20 Diagnostic Test (Pha) (Accu-Chek Comfort Curve T) 1 strip ACHS 07/21/24 11:30 07/22/24 11:09 Insulin Human Regular (InsuLIN R) ACHS SC 07/21/24 11:30 07/21/24 21:14 Sodium Chloride 1,000 ml @ 75 mls/hr [id number] IV 07/21/24 11:45 07/22/24 06:03 Lisinopril (Zestril Tablet) 20 mg DAILY PO 07/22/24 10:00 Review of Systems As described in HPI Vital Signs Vital Signs Date Time Temp Pulse Resp B/P (MAP) Pulse Ox O2 Delivery O2 Flow Rate FiO2 07/22/24 09:33 114/58 07/22/24 09:00 98.1 86 18 93 98.1 07/22/24 07:40 Room Air* 0 21 Physical Exam Examination General Appearance: Alert, Oriented X3, Cooperative, No acute distress HEENT: EOMI Respiratory: Clear to auscultation, Normal air movement Cardiovascular: Regular rate, Normal S1, Normal S2 Abdominal: Normal bowel sounds Extremities: No cyanosis, No edema, Normal pulses, No tenderness/swelling Skin: No rashes, No breakdown Neuro: Normal gait, Normal speech, Strength at 5/5 X4 ext, Normal tone, Sen sation intact, Cranial nerves 3-12 NL, Reflexes 2+ Psych/Mental Status: Mental status NL, Mood NL Labs/Diagnostic Data Labs Test 07/22/24 11:06 07/22/24 06:27 07/21/24 04:40 07/20/24 22:53 Range/Units POC Glucose 121 H 70-106 mg/dl White Blood Count 16.3 H 4.4-10.8 10^3/uL Red Blood Count 4.28 4.0-5.20 10^6/uL Hemoglobin 12.3 12.2-16.2 g/dL Hematocrit 36.8 36.0-46.0 % Mean Corpuscular Volume 86.1 80.0-100.0 fL Mean Corpuscular Hemoglobin 28.7 28.0-32.0 pg Mean Corpuscular Hemoglobin Concent 33.3 32.0-36.0 g/dL Red Cell Distribution Width 13.8 11.8-14.3 % Platelet Count 329 140-450 10^3/uL Mean Platelet Volume 8.8 6.9-10.8 fL Neutrophils (%) (Auto) 78.5 37.0-80.0 % Lymphocytes (%) (Auto) 12.8 10.0-50.0 % Monocytes (%) (Auto) 8.0 0.0-12.0 % Eosinophils (%) (Auto) 0.4 0.0-7.0 % Basophils (%) (Auto) 0.3 0.0-2.0 % Neutrophils # (Auto) 12.8 H 1.6-8.6 10 ^3/uL Lymphocytes # (Auto) 2.1 0.4-5.4 10 ^3/uL Monocytes # (Auto) 1.3 0-1.3 10 ^3/uL Eosinophils # (Auto) 0.1 0-0.8 10 ^3/uL Basophils # (Auto) 0 0-0.2 10 ^3/uL Nucleated Red Blood Cells 0.0 % Sodium Level 138 136-145 mmol/L Potassium Level 4.4 3.5-5.1 mmol/L Chloride Level 106 98-107 mmol/L Carbon Dioxide Level 23 20-31 mmol/L Anion Gap 9 5-15 Blood Urea Nitrogen 19 9-23 mg/dL Creatinine 1.20 H 0.550-1.02 mg/dL Glomerular Filtration Rate Calc 49 >90 mL/min BUN/Creatinine Ratio 15.8 10.0-20.0 Serum Glucose 118 H 74-106 mg/dL Calcium Level 9.3 8.7-10.4 mg/dL Total Bilirubin 0.4 0.2-1.0 mg/dL Aspartate Amino Transferase (AST) 17 13-40 U/L Alanine Aminotransferase (ALT) 20 7-40 U/L Alkaline Phosphatase 108 46-116 U/L Total Protein 6.8 5.7-8.2 g/dL Albumin 4.0 3.2-4.8 g/dL Hemoglobin A1c 7.0 H <5.7 % A1C Prothrombin Time 11.1 9.3-11.8 sec Prothrombin Time INR 1.05 0.9-1.15 Activated Partial Thromboplast Time 33.5 24.5-34.5 SEC Test 07/20/24 18:53 07/20/24 18:19 Range/Units Troponin I High Sensitivity 5 </=34 ng/L Lipase 39 12-53 U/L Urine Color Light-orange Yellow Urine Clarity Ex.turbid Clear Urine pH 5.5 5.0-9.0 Urine Specific [place] 1.025 1.001-1.035 Urine Protein 1+ H Negative Urine Ketones Negative Negative Urine Blood 1+ H Negative /uL Urine Nitrite Negative Negative Urine Bilirubin Negative Negative Urine Urobilinogen Normal Negative mg/dL Urine Leukocyte Esterase 3+ Negative /uL Urine RBC 25 0 - 4 /hpf Urine Microscopic WBC 70 H 0-5 /HPF Urine Squamous Epithelial Cells Many <5 /hpf Urine Bacteria Few H None Seen /hpf Urine Mucus Few None Seen Urine Glucose Trace Normal mg/dL Plan/Recommendation ASSESSMENT AND PLAN Assessment # Acute cholecystitis with cholelithiasis -planned for Lap Cholecystecomy -consulted for cardiac clearance # Symptomatic UTI # Hypertension # Type 2 Diabetes Mellitus # Hyperlipidemia Plan -RCRI score of 2, with 10.1% amy-op major Cardiac event risk -DASI 37.45 points The higher the score (maximum 58.2), the higher the functional status. 7.34 METs Patient can be proceeded for surgery. we agree with the plan of management of hypertension and hyperlipidemia as per primary team Thank you for consulting. We will sign off from this case as of now, kindly reconsult if needed Case discussion with Dr Smith Patient was discussed with Resident Physician Dr. Nena Barron. I agree with his Assessment and Plan, which was formulated with me. Plan discussed with: Patient NENA BARRON RESIDENT July 22, 2024 11:31 MARQUISE SMITH DO July 22, 2024 21:40
--- NOTE | 2024-07-22 11:45 | DVHPN2 ---
Progress Note Date Seen: July 22, 2024 Medical Necessity Reason Pt with a Central, PICC or Fol: No Objective vital signs Vital Sign Date Time Temp Pulse Resp B/P (MAP) Pulse Ox O2 Delivery O2 Flow Rate FiO2 07/22/24 09:33 114/58 07/22/24 09:00 98.1 86 18 93 98.1 07/22/24 07:40 Room Air* 0 21 Total Intake and Output 07/21/24 07/21/24 07/22/24 15:00 23:00 07:00 Intake Total 100 ml Balance 100 ml medications Current Medications Medications Dose Ordered Sig/Aguila Route Start Time Stop Time Status Last Admin Dose Admin Ceftriaxone Sodium 50 ml @ 100 mls/hr DAILY@2100 IV 07/21/24 21:00 07/21/24 20:20 100 MLS/HR Metronidazole 100 ml @ 100 mls/hr Q8HR IV 07/21/24 06:00 07/22/24 06:03 100 MLS/HR Ondansetron HCl 4 mg Q4HP PRN IV 07/20/24 22:30 Morphine Sulfate 2 mg Q4HPRN PRN IV 07/20/24 22:30 07/21/24 09:51 2 MG Diagnostic Test (Pha) 1 strip ACHS 07/21/24 11:30 07/22/24 11:09 1 STRIP Insulin Human Regular ACHS SC 07/21/24 11:30 07/21/24 21:14 3 UNITS Dextrose 50 ml UD PRN IV 07/21/24 09:30 Sodium Chloride 1,000 ml @ 75 mls/hr [id number] IV 07/21/24 11:45 07/22/24 06:03 75 MLS/HR Lisinopril 20 mg DAILY PO 07/22/24 10:00 laboratory and microbiology Laboratory Tests 07/22/24 06:27 Test 07/22/24 06:27 Range/Units Serum Glucose 118 H 74-106 mg/dL Problem List/Assessment/Plan Problem List/Assessment/Plan 07/22/24 patient undergoing cardiac evaluation for clearance for cholecystectomy, She had no prior abdominal operations, laparoscopic possibly iopen cholecystectomy,risks and complications explained in detail. Plan discussed with: Patient, Other ABNER HO MD July 22, 2024 11:45
--- NOTE | 2024-07-22 11:46 | DVH ---
CHEST RADIOGRAPH Indication: cardiac clearance Technique: Single frontal view of the chest was obtained Comparison: None FINDINGS: The cardiac silhouette is enlarged. The lungs demonstrate patchy airspace opacities. The pulmonary va sculature is prominent. Small right pleural effusion. There is no pneumothorax. IMPRESSION: 1. Cardiomegaly with pulmonary vascular congestion and bilateral patchy airspace opacities. 2. Small right pleural effusion
[2024-07-22 13:00] VITALS: BP 127/65; PULSE 78; RESP 20; TEMP 97.7; O2SAT 97
[2024-07-22] MEDS: D5W/SOD CHL 0.45%/KCL 20MEQ 1,000 ML IV SCH (13:12)
--- NOTE | 2024-07-22 14:35 | DVHPNRES ---
Progress Note Date Seen: July 22, 2024 Resident Creating Document: FELIPE HARP RESIDENT Medical Necessity Reason Pt with a Central, PICC or Fol: No Subjective Review of Systems Seen and examined at bedside, no new complaints, abdominal pain is better now, no complaint of nausea or vomiting, surgical consultation appreciated and planning for cholecystectomy. Objective vital signs Vital Sign Date Time Temp Pulse Resp B/P (MAP) Pulse Ox O2 Delivery O2 Flow Rate FiO2 07/22/24 09:33 114/58 07/22/24 09:00 98.1 86 18 93 98.1 07/22/24 07:40 Room Air* 0 21 Total Intake and Output 07/21/24 07/21/24 07/22/24 15:00 23:00 07:00 Intake Total 100 ml Balance 100 ml medications Current Medications Medications Dose Ordered Sig/Aguila Route Start Time Stop Time Status Last Admin Dose Admin Ceftriaxone Sodium 50 ml @ 100 mls/hr DAILY@2100 IV 07/21/24 21:00 07/21/24 20:20 100 MLS/HR Metronidazole 100 ml @ 100 mls/hr Q8HR IV 07/21/24 06:00 07/22/24 13:11 100 MLS/HR Ondansetron HCl 4 mg Q4HP PRN IV 07/20/24 22:30 Morphine Sulfate 2 mg Q4HPRN PRN IV 07/20/24 22:30 07/21/24 09:51 2 MG Diagnostic Test (Pha) 1 strip ACHS 07/21/24 11:30 07/22/24 11:09 1 STRIP Insulin Human Regular ACHS SC 07/21/24 11:30 07/21/24 21:14 3 UNITS Dextrose 50 ml UD PRN IV 07/21/24 09:30 Lisinopril 20 mg DAILY PO 07/22/24 10:00 Potassium Chloride/Dextrose/ Sod Cl 1,000 ml @ 100 mls/hr Q10H IV 07/22/24 11:45 07/22/24 13:12 100 MLS/HR Examination GENERAL: Not in acute distress. HEENT: EOMI, Moist mucous membranes. No scleral icterus. No cervical lymphadenopathy. LUNGS: Clear to auscultation bilaterally. No accessory muscle use. CARDIOVASCULAR: Regular rate and rhythm. No murmur. No JVD. ABDOMEN: Soft, epigastric tenderness, nondistended, bowel sounds present all 4 quadrants, no guarding, no rigidity, no organomegaly. Lira's Sign (+). EXTREMITIES: Trace edema. Nontender. SKIN: No rashes or lesions. Warm. NEUROLOGIC: Alert and oriented X3 laboratory and microbiology Laboratory Tests 07/22/24 06:27 Test 07/22/24 06:27 Range/Units Serum Glucose 118 H 74-106 mg/dL Problem List/Assessment/Plan Problem List/Assessment/Plan # Acute cholecystitis with cholelithiasis # Acute abdominal pain # Leukocytosis - Surgical consultation appreciated: planning for cholecystectomy. - HIDA scan: Findings consistent with cystic duct obstruction. - Informed patient about the need for gallbladder removal surgery - continue empiric antibiotics # Symptomatic UTI - shows leukocyte esterase 3+, urine WBC 70, bacteria few - patient has complaint of dysuria - continue Rocephin # Hypertension - Monitor blood pressure closely - Continue current antihypertensive medication (lisinopril) # Type 2 Diabetes Mellitus - HbA1C :7.0 - monitor blood glucose level -continue sliding scale insulin # Hyperlipidemia - Continue current cholesterol medication ( Rosuvastatin 5 mg daily ) - RCRI score of 2, with 6% amy-op Cardiac event risk - Patient has Low cardiac risk for High risk surgery Goal of care discussed patient for 26 minutes: Full code Case discussed with Dr. Ortiz Plan discussed with: Patient My Orders My Orders Orders - FELIPE HARP RESIDENT Procedure Category Date Status Time * Cardiology Consult CONS 07/22/24 Transmitted 06:10 Date of Service: July 22, 2024 Billing Provider: CASANDRA ORTIZ MD Common Visit Codes: [id number] INP/OBS CARE(HIGH) FELIPE HARP July 22, 2024 14:35 CASANDRA ORTIZ MD July 28, 2024 09:13
[2024-07-22 17:00] VITALS: BP 124/57; PULSE 79; RESP 20; TEMP 98.4; O2SAT 97
[2024-07-22 21:00] VITALS: BP 145/63; PULSE 75; RESP 16; TEMP 97.9; O2SAT 95
[2024-07-23 01:00] VITALS: BP 131/59; PULSE 74; RESP 17; TEMP 98.4; O2SAT 100
[2024-07-23 05:00] VITALS: BP 148/65; PULSE 75; RESP 17; TEMP 98.6; O2SAT 99
--- NOTE | 2024-07-23 05:01 | ECG ---
[facility] Test Date: 2024-07-23 Test Time: 04:59:30 Pat Name: QUEENIE ORNELAS Department: Room: 0294 B Gender: F Store Keeper: GP : [id number] Requested By: MEENA WILLOUGHBY Order Number: [id number] Reading MD: Liu Isabel Measurements Intervals [place] Rate: 78 P: 29 TN: 150 QRS: -29 QRSD: 112 T: 30 QT: 404 QTc: 461 Interpretive Statements Sinus rhythm Incomplete right bundle branch block Low voltage, precordial leads Consider anterior infarct Electronically Signed On 07-23-2024 13:06:14 PDT by Liu Isabel Please click the below link to view image of tracing.
[2024-07-23 06:45] LABS: Basophils # (auto) 0 10 ^3/uL (0-0.2); Basophils % (auto) 0.2 % (0.0-2.0); Eosinophils # (auto) 0.3 10 ^3/uL (0-0.8); Eosinophils % (auto) 2.3 % (0.0-7.0); Hematocrit 35.6 % (36.0-46.0); Hemoglobin 11.9 g/dL (12.2-16.2); Lymphocytes # (auto) 1.4 10 ^3/uL (0.4-5.4); Lymphocytes % (auto) 11.7 % (10.0-50.0); Mean Corpuscular Hemoglobin 28.7 pg (28.0-32.0); Mean Corpuscular Hgb Conc. 33.3 g/dL (32.0-36.0); Mean Corpuscular Volume 86.1 fL (80.0-100.0); Monocytes # (auto) 0.9 10 ^3/uL (0-1.3); Monocytes % (auto) 7.4 % (0.0-12.0); Neutrophils # (auto) 9.4 10 ^3/uL (1.6-8.6); Neutrophils % (auto) 78.4 % (37.0-80.0); Platelet Count (auto) 333 10^3/uL (140-450); Red Blood Cells 4.14 10^6/uL (4.0-5.20); Red Cell Distribution Width 13.9 % (11.8-14.3); White Blood Cell 11.9 10^3/uL (4.4-10.8)
[2024-07-23] MEDS ORDERED: LIDOCAINE HCL 2% TOP JELLY 5ML TOP ONE (07:03)
[2024-07-23] MEDS ORDERED: ROCURONIUM 10MG/ML 10ML VIAL IV ONE (07:03)
[2024-07-23] MEDS ORDERED: DexAMETHasone SOD PHOS 10MG/1ML VIAL INJ ONE (07:03)
[2024-07-23] MEDS ORDERED: ONDANSETRON HCL 4 MG/2 ML VIAL ONE (07:03)
[2024-07-23] MEDS ORDERED: LIDOCAINE 2% (LOCAL ANESTH.) PF 5ml SDV ONE ×2 (07:03→08:14)
[2024-07-23] MEDS ORDERED: KETOROLAC TROMETH 30 MG/ML 1ML VIAL ONE (07:03)
[2024-07-23] MEDS ORDERED: GLYCOPYRROLATE 0.2 MG/ML 1ML VIAL ONE (07:03)
[2024-07-23] MEDS ORDERED: SUGAMMADEX 200mg/2ml Vial (100MG/ML) IV ONE (07:03)
[2024-07-23] MEDS ORDERED: PROPOFOL 10 MG/ML 20 ML IV ONE (07:03)
[2024-07-23] MEDS ORDERED: KETAMINE 50mg/ML 1ml syringe ONE (07:09)
[2024-07-23] MEDS ORDERED: fentaNYL CITRATE 100 MCG/2 ML VL ONE (07:09)
[2024-07-23 07:10] LABS: Alanine Aminotransferase 16 U/L (7-40); Albumin 3.9 g/dL (3.2-4.8); Anion Gap 12 (5-15); Aspartate Aminotransferase 19 U/L (13-40); BUN/Creatinine Ratio 16.3 (10.0-20.0); Blood Urea Nitrogen 16 mg/dL (9-23); Carbon Dioxide 22 mmol/L (20-31); Chloride 102 mmol/L (98-107); Glucose 106 mg/dL (74-106); Potassium 4.1 mmol/L (3.5-5.1); Total Protein 6.6 g/dL (5.7-8.2)
[2024-07-23] MEDS: CELECOXIB 100 MG CAP PO ONE (07:10)
[2024-07-23] MEDS: GABAPENTIN 300 MG CAP PO ONE (07:10)
[2024-07-23] MEDS: ACETAMINOPHEN IV 1000 MG/100ML (10MG/ML) IV ONE (07:10)
[2024-07-23 07:11] LABS: Bilirubin, Total 0.4 mg/dL (0.2-1.0)
[2024-07-23 07:12] LABS: Alkaline Phosphatase 116 U/L (46-116); Calcium 8.7 mg/dL (8.7-10.4); Sodium 136 mmol/L (136-145)
[2024-07-23 08:38] VITALS: PULSE 102; RESP 20; O2SAT 94
[2024-07-23] MEDS ORDERED: ONDANSETRON HCL 4 MG/2 ML VIAL IV PRN (08:45)
[2024-07-23] MEDS ORDERED: NALOXONE HCL 0.4 MG/ML VIAL IV PRN (08:45)
[2024-07-23] MEDS ORDERED: fentaNYL CITRATE 100 MCG/2 ML VL IV PRN (08:45)
[2024-07-23] MEDS ORDERED: ePHEDrine SULFATE 50 MG/ML AMP IV PRN (08:45)
[2024-07-23] MEDS ORDERED: FLUMAZENIL 0.1 MG/ML INJ 10ML MDV IV PRN (08:45)
[2024-07-23] MEDS ORDERED: HYDROmorphone HCL 2 MG/ML VL/or syr IV PRN ×2 (08:45→09:00)
[2024-07-23] MEDS ORDERED: ceFAZolin IM 1GM/2.5ML STERILE WATER IM ONE (09:00)
[2024-07-23] MEDS: LIDOCAINE W/ EPINEPHRINE 1% 20ML VIAL ONE (09:03)
[2024-07-23] MEDS: ceFAZolin 2 GM/D5W50ml 50 ML IV ONE (09:03)
[2024-07-23] MEDS: hydrALAZINE HCL 20 MG/ML VL IV PRN (09:03)
[2024-07-23] MEDS: BUPIVACAINE HCL 0.25% P/F 10 ML VIAL ONE (09:03)
[2024-07-23] MEDS: ACETAMINOPHEN IV 100 ML IV ONE (09:04)
[2024-07-23] MEDS: CELECOXIB 100 MG CAP ONE (09:04)
[2024-07-23] MEDS: POVIDONE IODINE 10 % TOPICAL OINT 30GM TOP ONE (09:04)
[2024-07-23] MEDS: GABAPENTIN 300 MG CAP ONE (09:04)
[2024-07-23 09:57] VITALS: BP 139/65; PULSE 93; RESP 14; TEMP 97.8; O2SAT 97
[2024-07-23] MEDS: D5W/SOD CHL 0.45%/KCL 20MEQ 1,000 ML IV SCH (10:12)
[2024-07-23] MEDS: PANTOPRAZOLE 40 MG/10 ML VIAL INJ IV SCH (10:12)
--- NOTE | 2024-07-23 11:52 | DVHPNRES ---
Progress Note Date Seen: July 23, 2024 Resident Creating Document: FELIPE HARP RESIDENT Medical Necessity Reason Pt with a Central, PICC or Fol: No Subjective Review of Systems Seen and examined at bedside, patient underwent cholecystectomy this morning, patient compliance and I will pain on surgical site. Objective vital signs Vital Sign Date Time Temp Pulse Resp B/P (MAP) Pulse Ox O2 Delivery O2 Flow Rate FiO2 07/23/24 09:57 97.8 93 14 139/65 (89) 97 97.8 07/23/24 09:49 Nasal Cannula* 2 28 Total Intake and Output 07/22/24 07/22/24 07/23/24 15:00 23:00 07:00 Intake Total 1450 ml 300 ml Balance 1450 ml 300 ml medications Current Medications Medications Dose Ordered Sig/[place]guila Route Start Time Stop Time Status Last Admin Dose Admin Ceftriaxone Sodium 50 ml @ 100 mls/hr DAILY@2100 IV 07/21/24 21:00 07/22/24 20:36 100 MLS/HR Diagnostic Test (Pha) 1 strip ACHS 07/21/24 11:30 07/23/24 11:16 1 STRIP Insulin Human Regular ACHS SC 07/21/24 11:30 07/23/24 11:16 4 UNITS Dextrose 50 ml UD PRN IV 07/21/24 09:30 Lisinopril 20 mg DAILY PO 07/22/24 10:00 Oxycodone HCl 10 mg ONCE PRN PO 07/23/24 08:45 Potassium Chloride/Dextrose/ Sod Cl 1,000 ml @ 120 mls/hr Q8H20M IV 07/23/24 09:00 07/23/24 10:12 120 MLS/HR Metronidazole 100 ml @ 100 mls/hr Q8HR IV 07/23/24 14:00 Hydromorphone HCl 1 mg Q3HPRN PRN IV 07/23/24 09:00 Ondansetron HCl 4 mg Q4HPRN PRN IV 07/23/24 09:00 Pantoprazole Sodium 40 mg DAILY IV 07/23/24 10:00 07/23/24 10:12 40 MG Cefazolin Sodium 50 ml @ 100 mls/hr Q8HR IV 07/23/24 15:30 Examination GENERAL: Not in acute distress. HEENT: EOMI, Moist mucous membranes. No scleral icterus. No cervical lymphadenopathy. LUNGS: Clear to auscultation bilaterally. No accessory muscle use. CARDIOVASCULAR: Regular rate and rhythm. No murmur. No JVD. ABDOMEN: Soft, epigastric tenderness, nondistended, bowel sounds present all 4 quadrants, no guarding, no rigidity, no organomegaly. Lira's Sign (+). EXTREMITIES: Trace edema. Nontender. SKIN: No rashes or lesions. Warm. NEUROLOGIC: Alert and oriented X3. laboratory and microbiology Laboratory Tests 07/23/24 06:18 Test 07/23/24 06:18 Range/Units Serum Glucose 106 74-106 mg/dL Problem List/Assessment/Plan Problem List/Assessment/Plan # Acute cholecystitis with cholelithiasis # Acute abdominal pain # Leukocytosis - s/p cholecystectomy - Surgical consultation appreciated: - HIDA scan: Findings consistent with cystic duct obstruction. - Informed patient about the need for gallbladder removal surgery - continue empiric antibiotics # Symptomatic UTI - shows leukocyte esterase 3+, urine WBC 70, bacteria few - patient has complaint of dysuria - continue Rocephin # Hypertension - Monitor blood pressure closely - Continue current antihypertensive medication (lisinopril) # Type 2 Diabetes Mellitus - HbA1C :7.0 - monitor blood glucose level -continue sliding scale insulin # Hyperlipidemia - Continue current cholesterol medication ( Rosuvastatin 5 mg daily ) Goal of care discussed patient for 24 minutes: Full code Case discussed with Dr. Ortiz Plan discussed with: Patient Date of Service: July 23, 2024 Billing Provider: CASANDRA ORTIZ MD Common Visit Codes: [id number] INP/OBS CARE(HIGH) FELIPE HARP RESIDENT July 23, 2024 11:52 CASANDRA ORTIZ MD July 28, 2024 12:37
--- NOTE | 2024-07-23 12:09 | DVHOP ---
DATE OF SURGERY: 07/23/2024 PREOPERATIVE DIAGNOSES: Cholelithiasis, cholecystitis, and morbid obesity. POSTOPERATIVE DIAGNOSES: Cholelithiasis, cholecystitis, and morbid obesity. SURGEON: James Richardson MD HUMAN RESOURCES TRAINER: Emma aquino. ANESTHESIA: General endotracheal. ANESTHESIOLOGIST: Heath Payne. PROCEDURES: Laparoscopy, laparoscopic cholecystectomy. DESCRIPTION OF PROCEDURE: Under general endotracheal anesthesia with the patient's skin prepped and draped, a supraumbilical incision was made and Veress needle inserted into the peritoneal cavity by the hanging drop technique in order to establish pneumoperitoneum to 15 mmHg of pressure by insufflation with carbon dioxide. With the abdomen fully distended, the needle was removed and replaced with a 5-mm trocar port placed through the small incision above the umbilicus. Through the 5-mm trocar port, the 5-mm viewing laparoscope was inserted and additional ports inserted through the upper abdomen in the subxiphoid midline skin, a 10-mm port, and in the anterior axillary line at the level of the umbilicus on the right side, a 5-mm port was inserted. Laparoscopy was performed. It was hampered by the patient's morbid obesity; however, it revealed a phlegmon in the right upper quadrant, which consisted of transverse colon, several loops of small bowel and omentum covering the edge of the right lobe of the liver. The phlegmon was dissected bluntly and the gallbladder was then visualized. It appeared tensely distended and ischemic. A [place] screw retractor had to be placed and inserted into the dome of the gallbladder, which resulted in spill of small amount of bile, which was then aspirated and sampled for cultures and sensitivities. The dissection was carried along the lateral aspect of the gallbladder, which was massively adherent to the structures forming the phlegmon. Dissection was difficult due to the patient's morbid obesity. Eventually, we were able to mobilize the entire gallbladder to its infundibular portion where the cystic duct and cystic artery were identified and circumferentially dissected, skeletonized, traced into the hepatic cystic triangle to minimize the potential for inadvertent injury to the common bile duct. The cystic duct and cystic artery were divided between metallic clips close to the gallbladder, again attempting to avoid inadvertent injury to the common bile duct. The cystic artery and cystic duct having been divided between clips, the gallbladder was then resected from its liver bed. The massively edematous gallbladder was placed into the specimen extraction bag. The subxiphoid incision had to be enlarged in order to accommodate the 6 cm stone within an edematous gallbladder, which was extremely difficult to remove from the peritoneal cavity. Following removal of the specimen from the abdominal cavity, the right upper quadrant was profusely irrigated. Irrigant was aspirated. Due to the inflammation in the phlegmon, the 10-mm Santos drain was placed underneath the right lobe of the liver and exteriorized to the 5-mm trocar port site on the right flank of the patient. The drain was secured to the patient's skin with a 2-0 nylon suture. Following assurance of complete hemostasis and evacuation of any shed bile, the abdomen was desufflated. Instrumentation was removed. The trocar ports were removed. The upper abdominal incision was closed using #1 Vicryl and metallic skin emelia were then used for approximation of all skin edges. The patient remained hemodynamically stable throughout the procedure, left the operating room following an accurate needle and sponge count at a separate station. Prior to the patient's leaving, I opened the removed gallbladder to make sure that there was no evidence of cancer on the mucosal surfaces. There was a 7 cm black stone within the cavity of the gallbladder. No obvious evidence of tumor formation on the mucosal surfaces of the open gallbladder and the gallbladder and stone were then submitted for histopathologic examination. There were no family members in the waiting room and no one answered on the phone given. The patient left the operating room following an accurate needle and sponge count in stable condition. MD KENDELL Chan/LIONEL TID: [id number] RECEIPT: [id number]
[2024-07-23] MEDS: metroNIDAZOLE 500MG/100ML 100 ML IV SCH (13:25)
[2024-07-23] MEDS: MAALOX PLUS or MAALOX 30 ML PO ONE (13:26)
[2024-07-23] MEDS: ceFAZolin 1GM/50ML 50 ML IV SCH (14:58)
[2024-07-23 16:55] VITALS: BP_SYST 120; BP_SYST 181; BP_DIAS 62; BP_DIAS 96; PULSE 73; RESP 18; TEMP 98.1; O2SAT 99
[2024-07-23 21:00] VITALS: BP 119/45; PULSE 66; RESP 18; TEMP 98.6; O2SAT 95
[2024-07-24] VITALS (8 sets, daily range): BP systolic 111–129; BP diastolic 55–69; PULSE 55–79; RESP 17–20; TEMP 91.7–98.4; O2SAT 95–99
[2024-07-24 07:49] LABS: Basophils # (auto) 0 10 ^3/uL (0-0.2); Basophils % (auto) 0.1 % (0.0-2.0); Eosinophils # (auto) 0 10 ^3/uL (0-0.8); Eosinophils % (auto) 0.1 % (0.0-7.0); Hematocrit 35.5 % (36.0-46.0); Hemoglobin 11.7 g/dL (12.2-16.2); Lymphocytes # (auto) 1.6 10 ^3/uL (0.4-5.4); Lymphocytes % (auto) 11.1 % (10.0-50.0); Mean Corpuscular Hemoglobin 28.6 pg (28.0-32.0); Mean Corpuscular Hgb Conc. 32.9 g/dL (32.0-36.0); Mean Corpuscular Volume 86.7 fL (80.0-100.0); Monocytes # (auto) 0.8 10 ^3/uL (0-1.3); Monocytes % (auto) 5.7 % (0.0-12.0); Neutrophils # (auto) 11.6 10 ^3/uL (1.6-8.6); Platelet Count (auto) 421 10^3/uL (140-450); Red Blood Cells 4.09 10^6/uL (4.0-5.20)
--- NOTE | 2024-07-24 08:32 | DVHPN2 ---
Progress Note Date Seen: July 24, 2024 Medical Necessity Reason Pt with a Central, PICC or Fol: No Objective vital signs Vital Sign Date Time Temp Pulse Resp B/P (MAP) Pulse Ox O2 Delivery O2 Flow Rate FiO2 07/24/24 05:00 97.6 65 17 119/55 (76) 95 97.6 07/23/24 20:00 Nasal Cannula* 2 28 Total Intake and Output 07/23/24 07/23/24 07/24/24 15:00 23:00 07:00 Intake Total 1350 ml Output Total 40 ml Balance -40 ml 1350 ml medications Current Medications Medications Dose Ordered Sig/Aguila Route Start Time Stop Time Status Last Admin Dose Admin Ceftriaxone Sodium 50 ml @ 100 mls/hr DAILY@2100 IV 07/21/24 21:00 07/23/24 20:24 100 MLS/HR Diagnostic Test (Pha) 1 strip ACHS 07/21/24 11:30 07/24/24 06:08 1 STRIP Insulin Human Regular ACHS SC 07/21/24 11:30 07/24/24 07:01 3 UNITS Dextrose 50 ml UD PRN IV 07/21/24 09:30 Lisinopril 20 mg DAILY PO 07/22/24 10:00 Oxycodone HCl 10 mg ONCE PRN PO 07/23/24 08:45 Potassium Chloride/Dextrose/ Sod Cl 1,000 ml @ 120 mls/hr Q8H20M IV 07/23/24 09:00 07/24/24 01:40 120 MLS/HR Metronidazole 100 ml @ 100 mls/hr Q8HR IV 07/23/24 14:00 07/24/24 06:08 100 MLS/HR Hydromorphone HCl 1 mg Q3HPRN PRN IV 07/23/24 09:00 Ondansetron HCl 4 mg Q4HPRN PRN IV 07/23/24 09:00 Pantoprazole Sodium 40 mg DAILY IV 07/23/24 10:00 07/23/24 10:12 40 MG Cefazolin Sodium 50 ml @ 100 mls/hr Q8HR IV 07/23/24 15:30 07/24/24 06:08 100 MLS/HR laboratory and microbiology Laboratory Tests 07/24/24 06:25 Test 07/24/24 06:25 Range/Units Serum Glucose Pending Problem List/Assessment/Plan Problem List/Assessment/Plan 07/22/24 patient undergoing cardiac evaluation for clearance for cholecystectomy, She had no prior abdominal operations, laparoscopic possibly iopen cholecystectomy,risks and complications explained in detail. 07/24/24 doing well, no nausea, abdomen soft,appropriately tender, wounds clean and well approximated, drain with non bilious drainage, serum bilirubin nl. Advance diet, discharge tomorrow Plan discussed with: Patient, Other ABNER HO MD July 24, 2024 08:32
[2024-07-24 08:34] LABS: Chloride 103 mmol/L (98-107); Potassium 4.4 mmol/L (3.5-5.1)
[2024-07-24 08:35] LABS: Anion Gap 11 (5-15); Calcium 9.5 mg/dL (8.7-10.4); Carbon Dioxide 21 mmol/L (20-31)
[2024-07-24 08:40] LABS: BUN/Creatinine Ratio 22.1 (10.0-20.0)
[2024-07-24 08:43] LABS: Blood Urea Nitrogen 25 mg/dL (9-23); Glucose 174 mg/dL (74-106); Sodium 135 mmol/L (136-145)
[2024-07-24] MEDS: ACETAMINOPHEN 325 MG TAB PO PRN (10:43)
--- NOTE | 2024-07-24 18:08 | DVHPNRES ---
Progress Note Date Seen: July 24, 2024 Resident Creating Document: NABILA PHILIPPE RESIDENT Medical Necessity Reason Pt with a Central, PICC or Fol: No Subjective Review of Systems patient seen and examined at the bedside passing flatus and has bowel movements mild pain at the surgical site Objective vital signs Vital Sign Date Time Temp Pulse Resp B/P (MAP) Pulse Ox O2 Delivery O2 Flow Rate FiO2 07/24/24 16:41 97.8 55 20 111/56 (74) 97 97.8 07/24/24 08:00 Nasal Cannula* 2 28 Total Intake and Output 07/23/24 07/23/24 07/24/24 15:00 23:00 07:00 Intake Total 1350 ml Output Total 40 ml Balance -40 ml 1350 ml medications Current Medications Medications Dose Ordered Sig/[place]ila Route Start Time Stop Time Status Last Admin Dose Admin Ceftriaxone Sodium 50 ml @ 100 mls/hr DAILY@2100 IV 07/21/24 21:00 Hold 07/23/24 20:24 100 MLS/HR Diagnostic Test (Pha) 1 strip ACHS 07/21/24 11:30 07/24/24 16:54 1 STRIP Insulin Human Regular ACHS SC 07/21/24 11:30 07/24/24 17:34 4 UNITS Dextrose 50 ml UD PRN IV 07/21/24 09:30 Lisinopril 20 mg DAILY PO 07/22/24 10:00 07/24/24 10:44 20 MG Oxycodone HCl 10 mg ONCE PRN PO 07/23/24 08:45 Potassium Chloride/Dextrose/ Sod Cl 1,000 ml @ 120 mls/hr Q8H20M IV 07/23/24 09:00 07/24/24 10:54 120 MLS/HR Metronidazole 100 ml @ 100 mls/hr Q8HR IV 07/23/24 14:00 07/24/24 16:54 100 MLS/HR Hydromorphone HCl 1 mg Q3HPRN PRN IV 07/23/24 09:00 Ondansetron HCl 4 mg Q4HPRN PRN IV 07/23/24 09:00 Pantoprazole Sodium 40 mg DAILY IV 07/23/24 10:00 07/24/24 10:44 40 MG Cefazolin Sodium 50 ml @ 100 mls/hr Q8HR IV 07/23/24 15:30 07/24/24 16:54 100 MLS/HR Acetaminophen 650 mg Q6HP PRN PO 07/24/24 08:45 07/24/24 17:46 650 MG Examination GENERAL: Not in acute distress. HEENT: EOMI, Moist mucous membranes. No scleral icterus. No cervical lymphadenopathy. LUNGS: Clear to auscultation bilaterally. No accessory muscle use. CARDIOVASCULAR: Regular rate and rhythm. No murmur. No JVD. ABDOMEN: Soft, diffuse tenderness, nondistended, bowel sounds present all 4 quadrants, no guarding, no rigidity, no organomegaly. EXTREMITIES: Trace edema. Nontender. SKIN: No rashes or lesions. Warm. NEUROLOGIC: Alert and oriented X3. laboratory and microbiology Laboratory Tests 07/24/24 06:25 Test 07/24/24 06:25 Range/Units Serum Glucose 174 H 74-106 mg/dL Microbiology Date/Time Source Procedure Growth Status 07/23/24 07:57 Other Gram Stain - Final Resulted 07/23/24 07:57 Other Anaerobic Culture Pending Resulted 07/23/24 07:57 Other Aerobic Culture - Preliminary Resulted Problem List/Assessment/Plan Problem List/Assessment/Plan # Acute cholecystitis with cholelithiasis # Acute abdominal pain # Leukocytosis - s/p cholecystectomy - Surgical consultation appreciated: - HIDA scan: Findings consistent with cystic duct obstruction. - diet advanced to regular # Symptomatic UTI - shows leukocyte esterase 3+, urine WBC 70, bacteria few - patient has complaint of dysuria - continue Rocephin # Hypertension - Monitor blood pressure closely - Continue current antihypertensive medication (lisinopril) # Type 2 Diabetes Mellitus - HbA1C :7.0 - monitor blood glucose level -continue sliding scale insulin # Hyperlipidemia - Continue current cholesterol medication ( Rosuvastatin 5 mg daily ) Goal of care discussed patient for 23 minutes: Full code Case discussed with Dr. Ortiz Plan discussed with: Patient, Other Date of Service: July 24, 2024 Billing Provider: CASANDRA ORTIZ MD Common Visit Codes: [id number] INP/OBS CARE(HIGH) NABILA PHILIPPE RESIDENT July 24, 2024 18:08 CASANDRA ORTIZ MD July 28, 2024 12:42
[2024-07-24] MEDS: oxyCODONE HCL 5MG TAB PO PRN (22:01)
[2024-07-25] VITALS (7 sets, daily range): BP systolic 118–145; BP diastolic 54–75; PULSE 63–84; RESP 17–19; TEMP 97.5–98.4; O2SAT 93–98
[2024-07-25] MEDS: oxyCODONE HCL 5MG TAB PO PRN (06:56)
[2024-07-25 06:58] LABS: Basophils # (auto) 0 10 ^3/uL (0-0.2); Basophils % (auto) 0.4 % (0.0-2.0); Eosinophils # (auto) 0.1 10 ^3/uL (0-0.8); Eosinophils % (auto) 1.8 % (0.0-7.0); Hematocrit 31.5 % (36.0-46.0); Hemoglobin 10.7 g/dL (12.2-16.2); Lymphocytes # (auto) 2.6 10 ^3/uL (0.4-5.4); Lymphocytes % (auto) 31.9 % (10.0-50.0); Mean Corpuscular Hemoglobin 28.9 pg (28.0-32.0); Mean Corpuscular Hgb Conc. 33.8 g/dL (32.0-36.0); Mean Corpuscular Volume 85.4 fL (80.0-100.0); Monocytes # (auto) 0.6 10 ^3/uL (0-1.3); Monocytes % (auto) 7.3 % (0.0-12.0); Neutrophils # (auto) 4.7 10 ^3/uL (1.6-8.6); Neutrophils % (auto) 58.6 % (37.0-80.0); Nucleated Red Blood Cells % 0.2 %; Platelet Count (auto) 356 10^3/uL (140-450); Red Blood Cells 3.69 10^6/uL (4.0-5.20); White Blood Cell 8.1 10^3/uL (4.4-10.8)
[2024-07-25 07:02] LABS: Anion Gap 6 (5-15); Carbon Dioxide 22 mmol/L (20-31); Potassium 4.1 mmol/L (3.5-5.1); Sodium 138 mmol/L (136-145)
[2024-07-25 07:04] LABS: Calcium 9.1 mg/dL (8.7-10.4)
[2024-07-25 07:08] LABS: BUN/Creatinine Ratio 22.7 (10.0-20.0); Blood Urea Nitrogen 22 mg/dL (9-23); Glucose 98 mg/dL (74-106)
[2024-07-25 07:16] LABS: Chloride 110 mmol/L (98-107)
[2024-07-25] MEDS: ONDANSETRON HCL 4 MG/2 ML VIAL IV PRN (08:12)
[2024-07-25] MEDS: PANTOPRAZOLE 40 MG TAB PO ONE (09:48)
[2024-07-25] MEDS ORDERED: CEPH250C PO (13:24)
[2024-07-25] MEDS ORDERED: IBUP-1454 PO (13:24)
[2024-07-25] MEDS ORDERED: LACT10SO3 PO (13:24)
--- NOTE | 2024-07-25 15:34 | DVHDSRES ---
Discharge Summary Date of Admission Resident Creating Document: NABILA PHILIPPE RESIDENT July 20, 2024 at 22:18 Date of Discharge: July 25, 2024 Admitting Diagnosis Acute cholecystitis Acute abdominal pain Leukocytosis UTI Wounds: s/p cholecystectomy with a entry port wound staged and right lower quadrant CADY drain Labs/Diagnostic Data: Laboratory Results Test 07/25/24 11:17 07/25/24 04:41 07/24/24 06:25 07/23/24 06:18 POC Glucose 201 mg/dl (70-106) White Blood Count 8.1 10^3/uL (4.4-10.8) Red Blood Count 3.69 10^6/uL (4.0-5.20) Hemoglobin 10.7 g/dL (12.2-16.2) Hematocrit 31.5 % (36.0-46.0) Mean Corpuscular Volume 85.4 fL (80.0-100.0) Mean Corpuscular Hemoglobin 28.9 pg (28.0-32.0) Mean Corpuscular Hemoglobin Concent 33.8 g/dL (32.0-36.0) Red Cell Distribution Width 14.0 % (11.8-14.3) Platelet Count 356 10^3/uL (140-450) Mean Platelet Volume 8.6 fL (6.9-10.8) Neutrophils (%) (Auto) 58.6 % (37.0-80.0) Lymphocytes (%) (Auto) 31.9 % (10.0-50.0) Monocytes (%) (Auto) 7.3 % (0.0-12.0) Eosinophils (%) (Auto) 1.8 % (0.0-7.0) Basophils (%) (Auto) 0.4 % (0.0-2.0) Neutrophils # (Auto) 4.7 10 ^3/uL (1.6-8.6) Lymphocytes # (Auto) 2.6 10 ^3/uL (0.4-5.4) Monocytes # (Auto) 0.6 10 ^3/uL (0-1.3) Eosinophils # (Auto) 0.1 10 ^3/uL (0-0.8) Basophils # (Auto) 0 10 ^3/uL (0-0.2) Nucleated Red Blood Cells 0.2 % Sodium Level 138 mmol/L (136-145) Potassium Level 4.1 mmol/L (3.5-5.1) Chloride Level 110 mmol/L (98-107) Carbon Dioxide Level 22 mmol/L (20-31) Anion Gap 6 (5-15) Blood Urea Nitrogen 22 mg/dL (9-23) Creatinine 0.97 mg/dL (0.550-1.02) Glomerular Filtration Rate Calc 64 mL/min (>90) BUN/Creatinine Ratio 22.7 (10.0-20.0) Serum Glucose 98 mg/dL (74-106) Calcium Level 9.1 mg/dL (8.7-10.4) Total Bilirubin 0.3 mg/dL (0.2-1.0) Aspartate Amino Transferase (AST) 19 U/L (13-40) Alanine Aminotransferase (ALT) 16 U/L (7-40) Alkaline Phosphatase 116 U/L (46-116) Total Protein 6.6 g/dL (5.7-8.2) Albumin 3.9 g/dL (3.2-4.8) Test 07/21/24 04:40 07/20/24 22:53 07/20/24 18:53 07/20/24 18:19 Hemoglobin A1c 7.0 % A1C (<5.7) Prothrombin Time 11.1 sec (9.3-11.8) Prothrombin Time INR 1.05 (0.9-1.15) Activated Partial Thromboplast Time 33.5 SEC (24.5-34.5) Troponin I High Sensitivity 5 ng/L (</=34) Lipase 39 U/L (12-53) Urine Color Light-orange (Yellow) Urine Clarity Ex.turbid (Clear) Urine pH 5.5 (5.0-9.0) Urine Specific [place] 1.025 (1.001-1.035) Urine Protein 1+ (Negative) Urine Ketones Negative (Negative) Urine Blood 1+ /uL (Negative) Urine Nitrite Negative (Negative) Urine Bilirubin Negative (Negative) Urine Urobilinogen Normal mg/dL (Negative) Urine Leukocyte Esterase 3+ /uL (Negative) Urine RBC 25 /hpf (0 - 4) Urine Microscopic WBC 70 /HPF (0-5) Urine Squamous Epithelial Cells Many /hpf (<5) Urine Bacteria Few /hpf (None Seen) Urine Mucus Few (None Seen) Urine Glucose Trace mg/dL (Normal) Other Laboratory Tests 07/25/24 04:41 Brief Hx & Hospital Course: Patient is a 69-year-old female with a past medical history of hypertension, type 2 diabetes mellitus days presented to the ED with a chief complaint of abdominal pain for 4 days with the associated nausea and vomiting. Patient took [id number] remedies for pain control but no relief following which she came to the hospital. In the hospital CT abdomen pelvis without contrast was done which showed cholelithiasis with a evidence of acute cholecystitis, large 5.9 cm gallstone in the gallbladder lumen. Nuclear medicine HIDA scan showed findings consistent with cystic duct obstruction following which surgery were consulted and patient underwent laparoscopic cholecystectomy with CADY drain placement. Patient tolerated the surgery well and did not have fever, any other signs of infection and CADY drain was having serosanguineous discharge and the patient will be sent with CADY drain to home. Discharge plan: Follow up with the PCP in 1 week and follow up with surgery in the outpatient clinic with in 10-14 days Medications: Keflex 500 mg b.i.d. for 5 days, ibuprofen 600 mg b.i.d. p.r.n. for pain Continue on lisinopril and metformin Patient advised to strictly avoid straining abdomen and keep the abdominal binder on Consults/Reason for consult Surgical consultation for acute cholecystitis Operations or Procedures DATE OF SURGERY: 07/23/2024 PREOPERATIVE DIAGNOSES: Cholelithiasis, cholecystitis, and morbid obesity. POSTOPERATIVE DIAGNOSES: Cholelithiasis, cholecystitis, and morbid obesity. SURGEON: James Richardson MD NUCLEAR POWERPLANT MECHANIC: Emma aquino. ANESTHESIA: General endotracheal. ANESTHESIOLOGIST: Heath Payne. PROCEDURES: Laparoscopy, laparoscopic cholecystectomy. DESCRIPTION OF PROCEDURE: Under general endotracheal anesthesia with the patient's skin prepped and draped, a supraumbilical incision was made and Veress needle inserted into the peritoneal cavity by the hanging drop technique in order to establish pneumoperitoneum to 15 mmHg of pressure by insufflation with carbon dioxide. With the abdomen fully distended, the needle was removed and replaced with a 5-mm trocar port placed through the small incision above the umbilicus. Through the 5-mm trocar port, the 5-mm viewing laparoscope was inserted and additional ports inserted through the upper abdomen in the subxiphoid midline skin, a 10-mm port, and in the anterior axillary line at the level of the umbilicus on the right side, a 5-mm port was inserted. Laparoscopy was performed. It was hampered by the patient's morbid obesity; however, it revealed a phlegmon in the right upper quadrant, which consisted of transverse colon, several loops of small bowel and omentum covering the edge of the right lobe of the liver. The phlegmon was dissected bluntly and the gallbladder was then visualized. It appeared tensely distended and ischemic. A [place] screw retractor had to be placed and inserted into the dome of the gallbladder, which resulted in spill of small amount of bile, which was then aspirated and sampled for cultures and sensitivities. The dissection was carried along the lateral aspect of the gallbladder, which was massively adherent to the structures forming the phlegmon. Dissection was difficult due to the patient's morbid obesity. Eventually, we were able to mobilize the entire gallbladder to its infundibular portion where the cystic duct and cystic artery were identified and circumferentially dissected, skeletonized, traced into the hepatic cystic triangle to minimize the potential for inadvertent injury to the common bile duct. The cystic duct and cystic artery were divided between metallic clips close to the gallbladder, again attempting to avoid inadvertent injury to the common bile duct. The cystic artery and cystic duct having been divided between clips, the gallbladder was then resected from its liver bed. The massively edematous gallbladder was placed into the specimen extraction bag. The subxiphoid incision had to be enlarged in order to accommodate the 6 cm stone within an edematous gallbladder, which was extremely difficult to remove from the peritoneal cavity. Following removal of the specimen from the abdominal cavity, the right upper quadrant was profusely irrigated. Irrigant was aspirated. Due to the inflammation in the phlegmon, the 10-mm Santos drain was placed underneath the right lobe of the liver and exteriorized to the 5-mm trocar port site on the right flank of the patient. The drain was secured to the patient's skin with a 2-0 nylon suture. Following assurance of complete hemostasis and evacuation of any shed bile, the abdomen was desufflated. Instrumentation was removed. The trocar ports were removed. The upper abdominal incision was closed using #1 Vicryl and metallic skin emelia were then used for approximation of all skin edges. The patient remained hemodynamically stable throughout the procedure, left the operating room following an accurate needle and sponge count at a separate station. Prior to the patient's leaving, I opened the removed gallbladder to make sure that there was no evidence of cancer on the mucosal surfaces. There was a 7 cm black stone within the cavity of the gallbladder. No obvious evidence of tumor formation on the mucosal surfaces of the open gallbladder and the gallbladder and stone were then submitted for histopathologic examination. There were no family members in the waiting room and no one answered on the phone given. The patient left the operating room following an accurate needle and sponge count in stable condition. James Richardson MD PF/LIONEL Condition at Discharge: Good Final Diagnosis/Problems List # Acute cholecystitis with cholelithiasis # Acute abdominal pain # Leukocytosis # Symptomatic UTI # Hypertension # Type 2 Diabetes Mellitus # Hyperlipidemia Discharge Disposition: Home Discharge Instruct/Medications Diet: Cardiac 2g Na,low cholest Activity: Light activity Activity comment: avoid abdominal pressure and while getting out of the bed and moving use the abdominal binder Follow Up/Referral: Follow up in the surgery outpateint clinic with Dr. Richardson in 10 days Medications: as per EMR Discharge Statement: "Patient was advised to return to the ER or call 911 if any headaches, dizziness, shortness of breath, chest pain, abdominal pain, bleeding, fevers, or worsening of medical condition. Patient was counseled about treatment plan, medications, possible side effects, patientverbalized understanding. All questions were answered to the best of my ability. This discharge took greater then 30 minutes in planning, reviewing documentation, counseling the patient, and discussing with other team members." ASSESSMENT ASSESSMENT Assessment # Acute cholecystitis with cholelithiasis # Acute abdominal pain # Leukocytosis # Symptomatic UTI # Hypertension # Type 2 Diabetes Mellitus # Hyperlipidemia Date of Service: July 25, 2024 Billing Provider: DIANA RIOS MD Common Visit Codes: [id number] DISCH DAY <30MIN NABILA PHILIPPE RESIDENT July 25, 2024 15:34 DIANA RIOS MD July 25, 2024 22:16
== END 2024-07-25 17:05 | disposition home or self-care (01) | DRG 854 ==
LOC: ER 17:53 → OVERFLOW 22:18 → WEST WING 07-21 18:30
PROVIDERS: ADMIT Student in an Organized Health Care Education/Training Program; ATTEND Emergency Medicine
PROC: 0FT44ZZ Resection of Gallbladder, Percutaneous Endoscopic Approach (ICD-10-PCS; principal; 2024-07-23 07:21)
DX: A41.9 Sepsis, unspecified organism (principal); K80.00 Calculus of gallbladder with acute cholecystitis without obstruction; N39.0 Urinary tract infection, site not specified; E11.9 Type 2 diabetes mellitus without complications; I10 Essential (primary) hypertension; E66.01 Morbid (severe) obesity due to excess calories; K59.00 Constipation, unspecified; E78.5 Hyperlipidemia, unspecified; Z90.710 Acquired absence of both cervix and uterus; Z79.899 Other long term (current) drug therapy; Z79.84 Long term (current) use of oral hypoglycemic drugs; Z68.38 Body mass index [BMI] 38.0-38.9, adult
CPT/HCPCS: 36415; 71045; 74176; 78226; 80048; 80053; 81001; 82247; 82962; 83036; 83690; 84484; 85025; 85610; 85730; 86850; 86900; 86901; 87070; 87075; 87205; 93005; G0378; J0131; J0690; J1100; J1815; J1885; J2003; J2405; J2470; J2704; J3490